=== PATIENT | female | born 1970 | race Two or more races ===

== ENCOUNTER 2018-06-28 17:34 | Emergency (ER) | payer MEDICAID ==
[~2018-06-28] VITALS: Ht 154.9 cm; Wt 67.1 kg
[2018-06-28 18:46] LABS: Basophils # (auto) 0 uL; Basophils % (auto) 0.2 % (0.0-2.0); Eosinophils # (auto) 0 uL; Eosinophils % (auto) 0.3 % (0.0-7.0); Hematocrit 50.3 % (36.0-46.0); Hemoglobin 16.6 g/dL (12.2-16.2); Lymphocytes # (auto) 1.2 uL; Lymphocytes % (auto) 10.8 % (10.0-50.0); Mean Corpuscular Hemoglobin 28.7 pg (28.0-32.0); Mean Corpuscular Volume 86.8 fL (80.0-100.0); Monocytes # (auto) 0.5 uL; Monocytes % (auto) 4.7 % (0.0-12.0); Neutrophils # (auto) 9.2 uL; Nucleated Red Blood Cells % 0.4 %; Platelet Count (auto) 203 10^3/uL (140-450); Red Blood Cells 5.79 10^6/uL (4.0-5.20); Red Cell Distribution Width 13.2 % (11.8-14.3); White Blood Cell 10.9 10^3/uL (4.4-10.8)
[2018-06-28 18:54] LABS: Albumin 3.9 g/dL (3.4-5.0); Anion Gap 6 (5-15); BUN/Creatinine Ratio 13.2; Blood Urea Nitrogen 12 mg/dL (7-18); Carbon Dioxide 28 mmol/L (21-32); Chloride 106 mmol/L (98-107); GFR African American 86 mL/min; GFR Non-African American 71 mL/min; Glucose 98 mg/dL (74-106); Potassium 3.8 mmol/L (3.5-5.1); Sodium 140 mmol/L (136-145)
[2018-06-28] MEDS ORDERED: SODIUM CHLORIDE 0.9% 500 ML IV ONE (18:56)
[2018-06-28] MEDS ORDERED: METOPROLOL TARTRATE 1MG/1ML-5ML VIAL IV ONE (19:00)
[2018-06-28] MEDS ORDERED: MORPHINE SULFATE 4 MG/ML SYR/VIAL IV ONE (19:00)
[2018-06-28] MEDS ORDERED: ONDANSETRON HCL 4 MG/2 ML VIAL IV ONE (19:00)
[2018-06-28 19:08] LABS: Alanine Aminotransferase 44 U/L (13-56); Alkaline Phosphatase 53 U/L (45-117); Aspartate Aminotransferase 19 U/L (15-37); Bilirubin, Total 0.4 mg/dL (0.2-1.0); Total Protein 7.8 g/dL (6.4-8.2)
[2018-06-28 20:13] VITALS: BP 109/58
== END 2018-06-28 20:28 | disposition home or self-care (01) ==
LOC: ER 17:36
DX: R00.2 Palpitations (principal); G43.909 Migraine, unspecified, not intractable, without status migrainosus; R11.2 Nausea with vomiting, unspecified
CPT/HCPCS: 36415; 71046; 80053; 83735; 84484; 85025; 93005; 94761; 96361; 96374; 96375; 99284; J2270; J2405

== ENCOUNTER 2020-12-03 21:55 | Inpatient (IN) | payer MEDICAID ==
[~2020-12-03] VITALS: Ht 154.9 cm; Wt 66.7 kg
[2020-12-03] MEDS ORDERED: SODIUM CHLORIDE 0.9% 1,000 ML IV ONE (22:15)
[2020-12-03] MEDS ORDERED: dilTIAZem 125mg/125ml BAG KIT 125 ML IV ONE (22:15)
[2020-12-03] MEDS ORDERED: dilTIAZem 25 MG/5 ML VIAL IV ONE (22:15)
[2020-12-03 22:44] LABS: Basophils # (auto) 0 10 ^3/uL (0-0.2); Basophils % (auto) 0.7 % (0.0-2.0); Eosinophils # (auto) 0 10 ^3/uL (0-0.8); Eosinophils % (auto) 0.7 % (0.0-7.0); Hematocrit 47.9 % (36.0-46.0); Lymphocytes % (auto) 28.1 % (10.0-50.0); Mean Corpuscular Hemoglobin 28.8 pg (28.0-32.0); Mean Corpuscular Hgb Conc. 33.5 g/dL (32.0-36.0); Monocytes # (auto) 0.5 10 ^3/uL (0-1.3); Monocytes % (auto) 7.1 % (0.0-12.0); Neutrophils # (auto) 4.6 10 ^3/uL (1.6-8.6); Neutrophils % (auto) 63.4 % (37.0-80.0); Nucleated Red Blood Cells % 0.1 %; Red Blood Cells 5.57 10^6/uL (4.0-5.20); Red Cell Distribution Width 13.1 % (11.8-14.3); White Blood Cell 7.2 10^3/uL (4.4-10.8)
[2020-12-03 23:03] LABS: Albumin 3.3 g/dL (3.4-5.0); Anion Gap 8 (5-15); Blood Urea Nitrogen 16 mg/dL (7-18); Calcium 8.1 mg/dL (8.5-10.1); Carbon Dioxide 25 mmol/L (21-32); Chloride 109 mmol/L (98-107); Glucose 105 mg/dL (74-106); Potassium 3.2 mmol/L (3.5-5.1); Sodium 142 mmol/L (136-145)
[2020-12-03 23:09] LABS: Alanine Aminotransferase 41 U/L (13-56); Alkaline Phosphatase 49 U/L (45-117); Aspartate Aminotransferase 20 U/L (15-37); BUN/Creatinine Ratio 18.6; Bilirubin, Total 0.4 mg/dL (0.2-1.0); GFR African American 91 mL/min; GFR Non-African American 75 mL/min; Total Protein 6.8 g/dL (6.4-8.2)
[2020-12-04] MEDS ORDERED: ONDANSETRON HCL 4 MG/2 ML VIAL IV ONE (01:45)
[2020-12-04] MEDS ORDERED: POTASSIUM CHL 20 Meq TABLET PO ONE (02:00)
[2020-12-04 02:02] LABS: Urine Bacteria FEW /hpf (None Seen); Urine Blood Negative /uL (Negative); Urine Specific Gravity 1.004 (1.001-1.035); Urine WBC 1 /hpf (0 - 5)
[2020-12-04 02:14] LABS: Alcohol, Urine < 3.0 mg/dL (0-10); Amphetamine Screen, Urine NEGATIVE (NEGATIVE); Barbiturate Scree,Urine NEGATIVE (NEGATIVE); Benzodiazephine Screen, Urine NEGATIVE (NEGATIVE); Cannabinoid Screen, Urine NEGATIVE (NEGATIVE); Cocaine Screen, Urine NEGATIVE (NEGATIVE); Opiate Scree,Urine NEGATIVE (NEGATIVE); Phencyclidine Screen, Urine NEGATIVE (NEGATIVE)
[2020-12-04] MEDS ORDERED: NITROGLYCERIN 0.4 MG SL TAB SL PRN (03:45)
[2020-12-04] MEDS ORDERED: MORPHINE SULFATE INJECTION 2 MG/ML SYRG IV PRN (03:45)
[2020-12-04] MEDS ORDERED: NOREPINEPHRINE 8 MG/250ML KIT 250 ML IV SCH (05:45)
[2020-12-04] MEDS ORDERED: NOREPINEPHRINE 8 MG/250ML KIT 250 ML IV ONE (05:48)
[2020-12-04] MEDS ORDERED: SODIUM CHLORIDE 0.9% 500 ML IV ONE (06:00)
[2020-12-04] MEDS: ONDANSETRON HCL 4 MG/2 ML VIAL IV PRN ×2 (06:42→12:39)
[2020-12-04] MEDS ORDERED: cefTRIAXone SOD 500 MG VL IV SCH (10:00)
[2020-12-04] MEDS ORDERED: POTASSIUM EFFERVESENT TAB 25 MEQ PO ONE (11:00)
[2020-12-04] MEDS ORDERED: SODIUM CHLORIDE 0.9% 2,000 ML IV ONE (11:00)
[2020-12-04] MEDS: ENOXAPARIN SOD 60 MG/0.6 ML SYRINGE SC SCH ×2 (11:27→22:07)
[2020-12-04 11:39] LABS: INR 1.03 (0.9-1.15)
[2020-12-04] MEDS ORDERED: SUMAtriptan SUCCINATE 25 MG TAB PO ONE (13:00)
[2020-12-04] MEDS: METOPROLOL TARTRATE 25 MG TAB PO SCH (22:00)
[2020-12-05 04:15] LABS: BUN/Creatinine Ratio 14.5; Calcium 8.1 mg/dL (8.5-10.1); Potassium 3.9 mmol/L (3.5-5.1)
[2020-12-05] MEDS: METOPROLOL TARTRATE 25 MG TAB PO SCH (09:38)
[2020-12-05] MEDS: ENOXAPARIN SOD 60 MG/0.6 ML SYRINGE SC SCH (09:38)
[2020-12-05] MEDS ORDERED: ACETAMINOPHEN 325 MG TAB PO PRN (11:00)
[2020-12-05] MEDS ORDERED: MORPHINE SULFATE INJECTION 2 MG/ML SYRG IV PRN (11:00)
[2020-12-05] MEDS ORDERED: HYDROcodone-ACET 5/325MG TAB PO PRN (11:00)
[2020-12-05] MEDS ORDERED: SUMA100T15 PO (11:32)
[2020-12-05] MEDS ORDERED: ASPI-498 PO (11:32)
[2020-12-05 12:00] VITALS: BP 116/68
[2020-12-05] MEDS ORDERED: MET25T PO (12:27)
[2020-12-05] MEDS ORDERED: APIX5TAB PO (12:27)
== END 2020-12-05 13:56 | disposition home health service (06) | DRG 201 ==
LOC: ER 21:55 → EDBD 21:55 → TELE 12-04 03:45
PROVIDERS: ADMIT Nurse Practitioner Family; ATTEND Nurse Practitioner Family
DX: I48.0 Paroxysmal atrial fibrillation (principal); E87.6 Hypokalemia; G43.909 Migraine, unspecified, not intractable, without status migrainosus; Z20.822 Contact with and (suspected) exposure to COVID-19
CPT/HCPCS: 36415; 71045; 80048; 80053; 80061; 80307; 81001; 83036; 83735; 83880; 84484; 85025; 85610; 87426; 93005; 93306; 96361; 96365; 96366; 96375; 96376; G0378; J2405

== ENCOUNTER 2022-06-11 14:41 | Inpatient (IN) | payer MEDICAID ==
[~2022-06-11] VITALS: Ht 154.9 cm; Wt 68.9 kg
[~2022-06-11 14:41] MED LIST: APIX5TAB PO; ASPI-498 PO; MET25T PO; SUMA100T15 PO
[2022-06-11] MEDS ORDERED: SODIUM CHLORIDE 0.9% 1,000 ML IV ONE (15:15)
[2022-06-11] MEDS ORDERED: ONDANSETRON HCL 4 MG/2 ML VIAL IV ONE (15:15)
[2022-06-11] MEDS ORDERED: AMIODARONE 450mg/250ml AE 250 ML IV SCH (15:15)
[2022-06-11] MEDS ORDERED: AMIODARONE HCL 150 MG in D5W 5% 100 ML IV ONE (15:15)
[2022-06-11 15:28] LABS: Basophils # (auto) 0.1 10 ^3/uL (0-0.2); Basophils % (auto) 0.6 % (0.0-2.0); Eosinophils # (auto) 0 10 ^3/uL (0-0.8); Eosinophils % (auto) 0.1 % (0.0-7.0); Hematocrit 44.9 % (36.0-46.0); Hemoglobin 14.8 g/dL (12.2-16.2); Lymphocytes # (auto) 1.2 10 ^3/uL (0.4-5.4); Lymphocytes % (auto) 11.5 % (10.0-50.0); Mean Corpuscular Hemoglobin 28.1 pg (28.0-32.0); Mean Corpuscular Hgb Conc. 33.1 g/dL (32.0-36.0); Mean Corpuscular Volume 85.1 fL (80.0-100.0); Monocytes # (auto) 0.4 10 ^3/uL (0-1.3); Monocytes % (auto) 3.8 % (0.0-12.0); Neutrophils # (auto) 8.9 10 ^3/uL (1.6-8.6); Nucleated Red Blood Cells % 0.1 %; Red Blood Cells 5.28 10^6/uL (4.0-5.20); Red Cell Distribution Width 13.1 % (11.8-14.3); White Blood Cell 10.6 10^3/uL (4.4-10.8)
[2022-06-11 15:54] LABS: Albumin 3.1 g/dL (3.4-5.0); BUN/Creatinine Ratio 18.3; Calcium 7.9 mg/dL (8.5-10.1); Potassium 3.8 mmol/L (3.5-5.1)
[2022-06-11 15:56] LABS: Bilirubin, Total 0.4 mg/dL (0.2-1.0); Total Protein 5.9 g/dL (6.4-8.2)
[2022-06-11] MEDS ORDERED: PROMETHAZINE HCL 25 MG/ML 1ML IV ONE (17:15)
[2022-06-11 17:38] LABS: Urine Bacteria FEW /hpf (None Seen); Urine Blood Negative /uL (Negative); Urine Specific Gravity 1.008 (1.001-1.035); Urine WBC 1 /hpf (0 - 5)
[2022-06-11] MEDS ORDERED: MORPHINE SULFATE INJ 2 MG/ml SYRG IV PRN (18:00)
[2022-06-11] MEDS ORDERED: ACETAMINOPHEN 325 MG TAB PO PRN (18:00)
[2022-06-11] MEDS ORDERED: NITROGLYCERIN 0.4 MG SL TAB SL PRN (18:00)
[2022-06-11] MEDS ORDERED: HYDROcodone-ACET 5/325MG TAB PO PRN (18:00)
[2022-06-11] MEDS ORDERED: DOCUSATE SOD 100 MG CAP PO PRN (18:00)
[2022-06-11] MEDS ORDERED: ONDANSETRON HCL 4 MG/2 ML VIAL IV PRN (18:00)
[2022-06-11] MEDS ORDERED: CARV3.1240 PO (18:10)
[2022-06-11] MEDS ORDERED: dilTIAZem 25 MG/5 ML VIAL IV PRN (19:15)
[2022-06-11] MEDS: PANTOPRAZOLE 40 MG/10 ML VIAL INJ IV SCH (19:37)
[2022-06-11] MEDS ORDERED: ENOXAPARIN SOD 100 MG/1 ML SYRINGE SC SCH (20:00)
[2022-06-11] MEDS ORDERED: HYALURONIDASE 150 UNIT/1 ML SUBCUT ONE ×2 (20:15→22:45)
[2022-06-11] MEDS ORDERED: APIXABAN 5 MG TAB PO SCH (22:00)
[2022-06-11] MEDS: CARVEDILOL 3.125 MG TAB PO SCH (22:23)
[2022-06-12] MEDS ORDERED: AMIODARONE HCL 200 MG TAB PO SCH (00:55)
[2022-06-12] MEDS ORDERED: HYALURONIDASE 150 UNIT/1 ML SUBCUT ONE (00:55)
[2022-06-12] MEDS ORDERED: NITROGLYCERIN 2% OINT 1GM PKG TD ONE (03:45)
[2022-06-12 06:27] LABS: Basophils # (auto) 0.1 10 ^3/uL (0-0.2); Eosinophils # (auto) 0 10 ^3/uL (0-0.8); Eosinophils % (auto) 0.6 % (0.0-7.0); Hematocrit 42.5 % (36.0-46.0); Hemoglobin 14.1 g/dL (12.2-16.2); Lymphocytes # (auto) 1.8 10 ^3/uL (0.4-5.4); Lymphocytes % (auto) 24.6 % (10.0-50.0); Mean Corpuscular Hemoglobin 28.6 pg (28.0-32.0); Mean Corpuscular Hgb Conc. 33.2 g/dL (32.0-36.0); Mean Corpuscular Volume 86.3 fL (80.0-100.0); Monocytes # (auto) 0.6 10 ^3/uL (0-1.3); Monocytes % (auto) 7.4 % (0.0-12.0); Neutrophils % (auto) 66.4 % (37.0-80.0); Nucleated Red Blood Cells % 0.1 %; Red Blood Cells 4.93 10^6/uL (4.0-5.20); Red Cell Distribution Width 13.4 % (11.8-14.3); White Blood Cell 7.5 10^3/uL (4.4-10.8)
[2022-06-12] MEDS ORDERED: AMIODARONE 450mg/250ml AE 250 ML IV SCH (06:45)
[2022-06-12 06:47] LABS: Albumin 2.7 g/dL (3.4-5.0); Calcium 7.6 mg/dL (8.5-10.1); Potassium 3.6 mmol/L (3.5-5.1)
[2022-06-12 06:52] LABS: BUN/Creatinine Ratio 18.2; Bilirubin, Total 0.4 mg/dL (0.2-1.0); Total Protein 5.6 g/dL (6.4-8.2)
[2022-06-12] MEDS ORDERED: DRONEDARONE HCL 400 MG TAB PO SCH (10:00)
[2022-06-12] MEDS ORDERED: APIXABAN 5 MG TAB PO SCH (10:00)
[2022-06-12] MEDS ORDERED: ENOXAPARIN SOD 40 MG/0.4 ML SYRINGE SC SCH (10:00)
[2022-06-12] MEDS: CARVEDILOL 3.125 MG TAB PO SCH (10:02)
[2022-06-12] MEDS: PANTOPRAZOLE 40 MG/10 ML VIAL INJ IV SCH (10:02)
[2022-06-12] MEDS ORDERED: SUMAtriptan SUCCINATE 25 MG TAB PO PRN (15:15)
[2022-06-12] MEDS ORDERED: DRON400T PO (16:09)
[2022-06-12 17:38] VITALS: BP 149/76
== END 2022-06-12 18:40 | disposition home or self-care (01) | DRG 201 ==
LOC: EDBD 14:41 → EDUNIT# 14:41 → ER 14:41 → TELE 18:09
PROVIDERS: ADMIT Nurse Practitioner Family; ATTEND Nurse Practitioner Family
DX: I48.0 Paroxysmal atrial fibrillation (principal); K76.0 Fatty (change of) liver, not elsewhere classified; E66.9 Obesity, unspecified; I48.20 Chronic atrial fibrillation, unspecified; E78.5 Hyperlipidemia, unspecified; Z20.822 Contact with and (suspected) exposure to COVID-19; G43.909 Migraine, unspecified, not intractable, without status migrainosus; I10 Essential (primary) hypertension; Z79.899 Other long term (current) drug therapy; Z68.28 Body mass index [BMI] 28.0-28.9, adult
CPT/HCPCS: 36415; 70450; 71045; 80053; 81001; 83735; 84443; 84484; 85025; 87426; 87804; 93005; 93306; 96365; 96366; 96375; C9113; G0378; J2405; J3470; J7060

== ENCOUNTER 2024-01-29 08:46 | Inpatient (IN) | payer BC, MEDICAID ==
[~2024-01-29] VITALS: Ht 154.9 cm; Wt 73.4 kg
[~2024-01-29 08:46] MED LIST changes: +CARV3.1240 PO; +DRON400T PO
[2024-01-29] MEDS: dilTIAZem 25 MG/5 ML VIAL IV ONE ×2 (09:19→09:23)
--- NOTE | 2024-01-29 09:21 | ED.PDOC ---
HPI Comments 53-year-old female presents with a chief complaint of palpitations, SOB, and chest pain x onset this morning. Patient states that her pain is localized to her left chest wall, describes as pressure, and mentions that she has had this pain before in the past. Patient arrived to the ER with a heart rate of 190 and EKG showed A-Fib RVR. Blood pressure at bedside evaluation is 118/100. No other symptoms or modifying factors present at this time. Chief Complaint: Palpitations Time Seen by MD: 09:04 Primary Care Provider: JOSHUA Loza Notes: Medications, Allergies Allergies: Coded Allergies: NO KNOWN ALLERGIES (Unverified , 01/22/13) Home Meds Active Scripts Dronedarone Hydrochloride (Multaq) 400 Mg Tab, 400 MG PO BID, #60 TAB Prov:DEYANIRA AZAR MD 06/12/22 Apixaban Base (ELIQUIS) 5 Mg Tab, 5 MG PO BID, #60 TAB Prov:MAX CARDONA MD 12/05/20 Metoprolol Tartrate (Lopressor) 25 Mg Tb, 12.5 MG PO BID, #15 TAB Prov:MAX CARDONA MD 12/05/20 Reported Medications Carvedilol (Carvedilol) 3.125 Mg Tab, 1 TAB PO BID 06/11/22 Aspirin (ASPIRIN 81) 81 Mg Tab, 1 TAB PO DAILYPRN 12/05/20 Sumatriptan Succinate (Sumatriptan Succinate) 100 Mg Tab, PO 12/05/20 Information Source: Patient Mode of Arrival: Wheelchair Severity: Moderate Timing: Minutes Duration: Since onset Prehospital treatment: None Location: Chest (L) Radiation: No Radiation Quality: Pressure Onset: At Rest Cardiac Risk Factors: HTN PE Risk Factors: None History of: Similar pain in past Past Medical History PAST MEDICAL HISTORY: AFIB, HTN Surgical History: Denies all surgeries LABORATORY ADMINISTRATIVE DIRECTOR History: No Pertinent LABORATORY ADMINISTRATIVE DIRECTOR History Family History Family History: Reviewed,noncontributory to illness Social History Smoker: Non-Smoker Alcohol: Denies ETOH Use Drugs: Denies Drug Use Lives In: Home Constitutional: denies: chills, diaphoresis, fatigue, fever, malaise, sweats, weakness, others EENTM: denies: blurred vision, double vision, ear bleeding, ear discharge, ear drainage, ear pain, ear ringing, eye pain, eye redness, hearing loss, mouth pain, mouth swelling, nasal discharge, nose bleeding, nose congestion, nose pain, photophobia, tearing, throat pain, throat swelling, voice changes, others Respiratory: reports: shortness of breath; denies: cough, hemoptysis, orthopnea, SOB at rest, SOB with excertion, stridor, wheezing, others Cardiovascular: reports: chest pain, palpitations; denies: dizzy spells, diaphoresis, Dyspnea on exertion, edema, irregular heart beat, left arm pain, lightheadedness, PND, syncope, others Gastrointestinal: denies: abdomen distended, abdominal pain, blood streaked bowels, constipated, diarrhea, dysphagia, difficulty swallowing, hematemesis, melena, nausea, poor appetite, poor fluid intake, rectal bleeding, rectal pain, vomiting, others Genitourinary: denies: abnormal vagina bleeding, burning, dyspareunia, dysuria, flank pain, frequency, hematuria, incontinence, pain, , vagina discharge, urgency, others Neurological: denies: dizziness, fainting, headache, left sided numbness, left sided weakness, numbness, paresthesia, pre-existing deficit, right sided numbness, right sided weakness, seizure, speech problems, tingling, tremors, weakness, others Musculoskeletal: denies: back pain, gout, joint pain, joint swelling, muscle pain, muscle stiffness, neck pain, others Integumetry: denies: bruises, change in color, change in hair/nails, dryness, laceration, lesions, lumps, rash, wounds, others Allergic/Immunocompromised: denies: Difficulty Healing, Frequent Infections, Hives, Itching, others Hematologic/Lymphatic: denies: anemia, blood clots, easy bleeding, easy bruising, swollen glands, others Endocrine: denies: excessive hunger, excessive sweating, excessive thirst, excessive urination, flushing, intolerance to cold, intolerance to heat, unexplained weight gain, unexplained weight loss, others Psychiatric: denies: anxiety, bipolar disorder, depression, hopeless, panic disorder, schizophrenia, sleepless, suicidal, others All Other Systems: Reviewed and Negative Physical Exam General Appearance: No Apparent Distress, Normal HEENT: Normal ENT Inspection, Pharynx Normal, TMs Normal Neck: Full Range of Motion, Non-Tender, Normal, Normal Inspection Respiratory: Chest Non-Tender, Lungs Clear, No Accessory Muscle Use, No Respiratory Distress, Normal Breath Sounds Cardiovascular: No Edema, No JVD, No Murmur, No Gallop, Normal Peripheral Pulses, Regular Rate/Rhythm Breast Exam: Deferred Gastrointestinal: No Organomegaly, Non Tender, No Pulsatile Mass, Normal Bowel Sounds, Soft Genitalia: Deferred Pelvic: Deferred Rectal: Deferred Extremities: No calf tenderness, Normal capillary refill, Normal inspection, Normal range of motion, Non-tender, No pedal edema Musculoskeletal : Apperance: Normal Neurologic: Alert, sectionizer II-XII nml as Tested, No Motor Deficits, Normal Affect, Normal Mood, No Sensory Deficits Cerebellar Function: Normal Reflexes: Normal Skin: Dry, Normal Color, Warm Lymphatic: No Adenopathy EKG EKG : Pulse Rate (adult): 173 [place]: RAD Cardiac Rhythm: Afib ST: Inf, Lat, Ischemia Was a procedure done? Was a procedure done?: No CP Differential Dx Differential Diagnosis: A-fib, A-Flutter, Angina, Anxiety / Panic Attack, Electrolyte Disorder, Heart Failure, Hyperthyroidism, Hyperventilation, Pulmonary Embolus, Renal Failure Differential Diagnosis: CHF Differential Diagnosis: Angina, Chest Wall Pain, Costochondritis, Esophageal reflux/spasm, Myocardial Infarction, Pneumonia, Pulmonary Embolus X-Ray, Labs, Meds, VS Vital Signs Date Time Temp Pulse Resp B/P (MAP) Pulse Ox O2 Delivery O2 Flow Rate FiO2 01/29/24 12:48 120 01/29/24 12:00 137 01/29/24 11:49 134 01/29/24 11:48 160 101/73 01/29/24 11:09 139 101/76 (84) 01/29/24 10:33 173 01/29/24 09:53 96 01/29/24 09:30 98 Nasal Cannula* 2 28 01/29/24 09:25 98.1 85 17 97/38 (57) 95 98.1 01/29/24 09:14 82 01/29/24 08:54 98.0 173 19 118/100 (106) 97 01/29/24 08:48 173 Lab Test 01/29/24 13:20 01/29/24 11:30 01/29/24 10:48 01/29/24 10:26 Range/Units Troponin I High Sensitivity Pending 4 3 L </=34 ng/L Urine Color Light-yellow Yellow Urine Clarity Clear Clear Urine pH 5.0 5.0-9.0 Urine Specific [place] 1.006 1.001-1.035 Urine Protein Negative Negative Urine Ketones Negative Negative Urine Blood Negative Negative /uL Urine Nitrite Negative Negative Urine Bilirubin Negative Negative Urine Urobilinogen Normal Negative mg/dL Urine Leukocyte Esterase Negative Negative /uL Urine RBC None seen 0 - 4 /hpf Urine WBC <1 0 - 5 /hpf Urine Squamous Epithelial Cells Few <5 /hpf Urine Bacteria Many H None Seen /hpf Urine Mucus Few None Seen Urine Glucose Normal Normal mg/dL White Blood Count 8.1 4.4-10.8 10^3/uL Red Blood Count 5.00 4.0-5.20 10^6/uL Hemoglobin 14.5 12.2-16.2 g/dL Hematocrit 44.5 36.0-46.0 % Mean Corpuscular Volume 88.9 80.0-100.0 fL Mean Corpuscular Hemoglobin 28.9 28.0-32.0 pg Mean Corpuscular Hemoglobin Concent 32.5 32.0-36.0 g/dL Red Cell Distribution Width 13.4 11.8-14.3 % Platelet Count 167 140-450 10^3/uL Mean Platelet Volume 10.9 H 6.9-10.8 fL Neutrophils (%) (Auto) 78.3 37.0-80.0 % Lymphocytes (%) (Auto) 14.0 10.0-50.0 % Monocytes (%) (Auto) 6.4 0.0-12.0 % Eosinophils (%) (Auto) 0.9 0.0-7.0 % Basophils (%) (Auto) 0.4 0.0-2.0 % Neutrophils # (Auto) 6.3 1.6-8.6 10 ^3/uL Lymphocytes # (Auto) 1.1 0.4-5.4 10 ^3/uL Monocytes # (Auto) 0.5 0-1.3 10 ^3/uL Eosinophils # (Auto) 0.1 0-0.8 10 ^3/uL Basophils # (Auto) 0 0-0.2 10 ^3/uL Nucleated Red Blood Cells 0.0 % Sodium Level 143 136-145 mmol/L Potassium Level 3.9 3.5-5.1 mmol/L Chloride Level 113 H 98-107 mmol/L Carbon Dioxide Level 24 20-31 mmol/L Anion Gap 6 5-15 Blood Urea Nitrogen 10 9-23 mg/dL Creatinine 0.83 0.550-1.02 mg/dL Glomerular Filtration Rate Calc 85 >90 mL/min BUN/Creatinine Ratio 12.0 10.0-20.0 Serum Glucose 78 74-106 mg/dL Calcium Level 8.9 8.7-10.4 mg/dL Magnesium Level 2.2 1.6-2.6 mg/dL Total Bilirubin 0.4 0.2-1.0 mg/dL Aspartate Amino Transferase (AST) 20 13-40 U/L Alanine Aminotransferase (ALT) 35 7-40 U/L Alkaline Phosphatase 50 46-116 U/L B-Type Natriuretic Peptide 18.95 0-100 pg/mL Total Protein 6.3 5.7-8.2 g/dL Albumin 3.7 3.2-4.8 g/dL Thyroid Stimulating Hormone (TSH) 1.69 0.55-4.78 uIU/mL Test 01/29/24 10:20 Range/Units D-Dimer, Quantitative 0.20 0.0-0.49 mg/L FEU Current Medications Medications (Trade) Dose Ordered Sig/Lena Route Start Time Stop Time Status Last Admin Diltiazem HCl (Cardizem Injection) 25 mg ONCE ONCE IV 01/29/24 09:15 01/29/24 09:16 DC 01/29/24 09:23 Metoprolol Tartrate (Lopressor) 2.5 mg ONCE ONCE IV 01/29/24 11:30 01/29/24 11:33 DC 01/29/24 11:48 Sodium Chloride 1,000 ml @ 150 mls/hr Q6H40M ONCE IV 01/29/24 12:30 01/29/24 19:09 01/29/24 12:54 X-Ray, Labs, Meds, VS Comment Course in the emergency department eventful patient came in complaining of palpitation shortness of breath and chest pressure Blood pressure is 118/100 Chest x-ray is normal EKG shows uncontrolled paroxysmal atrial fibrillation at 100 and 73 CBC normal CMP negative BNP 18.9 Troponin three and four Magnesium 2.2 Urine shows many bacteria D-dimer 0.20 TSH 1.69 Patient will be admitted for further care Patient is still tachycardic if not better patient will be put on amiodarone Time of 1ST Reevaluation: 09:34 Reevaluation 1ST: Unchanged Patient Education/Counseling: Diagnosis, Treatment, Prognosis Family Education/Counseling: No Family Present Departure 1 Departure Time of Disposition: 12:24 Impression: Primary Impression: Paroxysmal atrial fibrillation Additional Impression: Chest pain Qualified Codes: I20.0 - Unstable angina Disposition: ADMITTED INPATIENT Admit to: Tele Condition: Serious Critical Care Note Critical Care Time?: No Stability Stability form required: Yes Unstable for transfer: Telemetry monitoring (Telemetry monitoring required), Requires medication (Requires Med for stabilization) Comments Dr. Almeida consulted Heart Score Heart Score: Heart Score Response (Comments) Value History Moderate Suspicious 1 EKG Repolarization Disturb 1 Age 45-64 1 Risk Factors 1 or 2 risk factors 1 Troponin Normal limit 0 Total 4 I personally scribed for KRUPA RODRIGUEZ MD ([email or web address]) on 01/29/24 at 09:21. Electronically submitted by Rojelio Yates ([email or web address]). KRUPA RODRIGUEZ MD Jan 29, 2024 09:21
[2024-01-29 09:30] VITALS: O2SAT 98
--- NOTE | 2024-01-29 09:38 | DVH ---
CHEST RADIOGRAPH Indication:PALPITATIONS Technique: Single frontal view of the chest was obtained Comparison: XY CHEST XRAY 1 VIEW on DOS: 06/11/22, CHEST PORTABLE on DOS: 12/04/20, CXRP on DOS: 12/03/20 FINDINGS: Lines and Tubes: None Lungs: No focal consolidation. Pleura: No effusion. No pneumothorax. Cardiomediastinal contours: Unremarkable Bones: No acute osseous abnormality. IMPRESSION: No acute cardiopulmonary disease.
[2024-01-29 10:45] LABS: Basophils # (auto) 0 10 ^3/uL (0-0.2); Basophils % (auto) 0.4 % (0.0-2.0); Eosinophils # (auto) 0.1 10 ^3/uL (0-0.8); Eosinophils % (auto) 0.9 % (0.0-7.0); Hematocrit 44.5 % (36.0-46.0); Hemoglobin 14.5 g/dL (12.2-16.2); Lymphocytes # (auto) 1.1 10 ^3/uL (0.4-5.4); Mean Corpuscular Hemoglobin 28.9 pg (28.0-32.0); Mean Corpuscular Hgb Conc. 32.5 g/dL (32.0-36.0); Mean Corpuscular Volume 88.9 fL (80.0-100.0); Monocytes # (auto) 0.5 10 ^3/uL (0-1.3); Monocytes % (auto) 6.4 % (0.0-12.0); Neutrophils # (auto) 6.3 10 ^3/uL (1.6-8.6); Neutrophils % (auto) 78.3 % (37.0-80.0); Platelet Count (auto) 167 10^3/uL (140-450); Red Cell Distribution Width 13.4 % (11.8-14.3); White Blood Cell 8.1 10^3/uL (4.4-10.8)
[2024-01-29 11:02] LABS: Alanine Aminotransferase 35 U/L (7-40); Albumin 3.7 g/dL (3.2-4.8); Alkaline Phosphatase 50 U/L (46-116); Anion Gap 6 (5-15); Aspartate Aminotransferase 20 U/L (13-40); Bilirubin, Total 0.4 mg/dL (0.2-1.0); Blood Urea Nitrogen 10 mg/dL (9-23); Calcium 8.9 mg/dL (8.7-10.4); Carbon Dioxide 24 mmol/L (20-31); Chloride 113 mmol/L (98-107); Glucose 78 mg/dL (74-106); Magnesium 2.2 mg/dL (1.6-2.6); Potassium 3.9 mmol/L (3.5-5.1); Sodium 143 mmol/L (136-145); Total Protein 6.3 g/dL (5.7-8.2)
[2024-01-29 11:11] LABS: Urine Bacteria MANY /hpf (None Seen); Urine Blood Negative /uL (Negative); Urine Mucus FEW (None Seen); Urine Protein, UAD Negative (Negative); Urine Specific Gravity 1.006 (1.001-1.035); Urine Urobilinogen Normal (Negative); Urine WBC <1 /hpf (0 - 5)
[2024-01-29 11:13] LABS: Urine Clarity Clear (Clear); Urine Color Light-Yellow (Yellow)
[2024-01-29] MEDS: METOPROLOL TARTRATE 1MG/1ML-5ML VIAL IV ONE (11:48)
[2024-01-29] MEDS: SODIUM CHLORIDE 0.9% 1,000 ML IV ONE (12:54)
[2024-01-29] MEDS: AMIODARONE BOLUS KIT 100 ML IV ONE (14:00)
--- NOTE | 2024-01-29 14:39 | DVHINCON2 ---
Date of service: Jan 29, 2024 History of Present Illness 53 yo F with hx of pAF, recent admit to [facility] for chest pain, admitted for afib rvr. pt has seen dr peters before and takes doac Past Medical History reviewed Allergies: Coded Allergies: NO KNOWN ALLERGIES (Unverified , 01/22/13) Home Meds Active Scripts Dronedarone Hydrochloride (Multaq) 400 Mg Tab, 400 MG PO BID, #60 TAB Prov:DEYANIRA AZAR MD 06/12/22 Apixaban Base (ELIQUIS) 5 Mg Tab, 5 MG PO BID, #60 TAB Prov:MAX CARDONA MD 12/05/20 Metoprolol Tartrate (Lopressor) 25 Mg Tb, 12.5 MG PO BID, #15 TAB Prov:MAX CARDONA MD 12/05/20 Reported Medications Carvedilol (Carvedilol) 3.125 Mg Tab, 1 TAB PO BID 06/11/22 Aspirin (ASPIRIN 81) 81 Mg Tab, 1 TAB PO DAILYPRN 12/05/20 Sumatriptan Succinate (Sumatriptan Succinate) 100 Mg Tab, PO 12/05/20 Current Medications Current Medications Medications (Trade) Dose Ordered Sig/Lena Route PRN Reason Start Time Stop Time Status Last Admin Amiodarone HCl 250 ml @ 33.333 mls/ hr Q7H30M IV 01/29/24 14:00 01/29/24 19:59 Amiodarone HCl 250 ml @ 16.667 mls/ hr Q15H IV 01/29/24 20:00 Review of Systems 10 pt ros otherwise negative Vital Signs Vital Signs Date Time Temp Pulse Resp B/P (MAP) Pulse Ox O2 Delivery O2 Flow Rate FiO2 01/29/24 12:48 120 01/29/24 11:48 101/73 01/29/24 09:30 98 Nasal Cannula* 2 28 01/29/24 09:25 98.1 17 98.1 Physical Exam nad s1 s2 irregular ctab soft nt/nd no edema Labs/Diagnostic Data Labs Test 01/29/24 13:20 01/29/24 10:48 01/29/24 10:26 01/29/24 10:20 Range/Units Troponin I High Sensitivity 4 </=34 ng/L Urine Color Light-yellow Yellow Urine Clarity Clear Clear Urine pH 5.0 5.0-9.0 Urine Specific [place] 1.006 1.001-1.035 Urine Protein Negative Negative Urine Ketones Negative Negative Urine Blood Negative Negative /uL Urine Nitrite Negative Negative Urine Bilirubin Negative Negative Urine Urobilinogen Normal Negative mg/dL Urine Leukocyte Esterase Negative Negative /uL Urine RBC None seen 0 - 4 /hpf Urine WBC <1 0 - 5 /hpf Urine Squamous Epithelial Cells Few <5 /hpf Urine Bacteria Many H None Seen /hpf Urine Mucus Few None Seen Urine Glucose Normal Normal mg/dL White Blood Count 8.1 4.4-10.8 10^3/uL Red Blood Count 5.00 4.0-5.20 10^6/uL Hemoglobin 14.5 12.2-16.2 g/dL Hematocrit 44.5 36.0-46.0 % Mean Corpuscular Volume 88.9 80.0-100.0 fL Mean Corpuscular Hemoglobin 28.9 28.0-32.0 pg Mean Corpuscular Hemoglobin Concent 32.5 32.0-36.0 g/dL Red Cell Distribution Width 13.4 11.8-14.3 % Platelet Count 167 140-450 10^3/uL Mean Platelet Volume 10.9 H 6.9-10.8 fL Neutrophils (%) (Auto) 78.3 37.0-80.0 % Lymphocytes (%) (Auto) 14.0 10.0-50.0 % Monocytes (%) (Auto) 6.4 0.0-12.0 % Eosinophils (%) (Auto) 0.9 0.0-7.0 % Basophils (%) (Auto) 0.4 0.0-2.0 % Neutrophils # (Auto) 6.3 1.6-8.6 10 ^3/uL Lymphocytes # (Auto) 1.1 0.4-5.4 10 ^3/uL Monocytes # (Auto) 0.5 0-1.3 10 ^3/uL Eosinophils # (Auto) 0.1 0-0.8 10 ^3/uL Basophils # (Auto) 0 0-0.2 10 ^3/uL Nucleated Red Blood Cells 0.0 % Sodium Level 143 136-145 mmol/L Potassium Level 3.9 3.5-5.1 mmol/L Chloride Level 113 H 98-107 mmol/L Carbon Dioxide Level 24 20-31 mmol/L Anion Gap 6 5-15 Blood Urea Nitrogen 10 9-23 mg/dL Creatinine 0.83 0.550-1.02 mg/dL Glomerular Filtration Rate Calc 85 >90 mL/min BUN/Creatinine Ratio 12.0 10.0-20.0 Serum Glucose 78 74-106 mg/dL Calcium Level 8.9 8.7-10.4 mg/dL Magnesium Level 2.2 1.6-2.6 mg/dL Total Bilirubin 0.4 0.2-1.0 mg/dL Aspartate Amino Transferase (AST) 20 13-40 U/L Alanine Aminotransferase (ALT) 35 7-40 U/L Alkaline Phosphatase 50 46-116 U/L B-Type Natriuretic Peptide 18.95 0-100 pg/mL Total Protein 6.3 5.7-8.2 g/dL Albumin 3.7 3.2-4.8 g/dL Thyroid Stimulating Hormone (TSH) 1.69 0.55-4.78 uIU/mL D-Dimer, Quantitative 0.20 0.0-0.49 mg/L FEU Assessment afib rvr chest pain htn obesity Plan/Recommendation amio gtt iv digoxin cont lovenox/ or doac check echo had echo done [facility] 1 week ago Plan discussed with: Patient BENJAMÍN MELISSA MD Jan 29, 2024 14:39
[2024-01-29] MEDS: AMIODARONE 450mg/250ml AE 250 ML IV SCH ×2 (14:53→20:00)
[2024-01-29] MEDS: ENOXAPARIN SOD 80 MG/0.8ML SYRINGE SC ONE (15:14)
[2024-01-29] MEDS: DIGOXIN (250MCG/ML) 2 ML AMPULE IV ONE (15:14)
[2024-01-29] MEDS: METOPROLOL SUCCINATE XL 50 MG TAB PO SCH (15:14)
[2024-01-29] MEDS: SUMAtriptan SUCCINATE 25 MG TAB PO ONE (16:36)
[2024-01-29] MEDS ORDERED: ACETAMINOPHEN 325 MG TAB PO PRN (16:45)
[2024-01-29] MEDS ORDERED: ONDANSETRON HCL 4 MG/2 ML VIAL IV PRN (16:45)
[2024-01-29] MEDS ORDERED: DOCUSATE SOD 100 MG CAP PO PRN (16:45)
--- NOTE | 2024-01-29 17:04 | DVHHP2 ---
History of Present Illness Reason for Visit: Paroxysmal atrial fibrillation History of Present Illness The patient is a 53-year-old female with past medical history of atrial fibrillation and hypertension who presented to [facility] ED with complaint of palpitations. Patient reports symptoms progressively get worse with localized left chest pain, nausea, shortness of breath, getting worse that prompted this visit. Patient was seen and evaluated in the ED with a heart rate of 190, EKG showed AFib with RVR, blood pressure 101/76, temperature 98.1 F, O2 saturation 98% on oxygen, WBC 8.1, platelets 167, sodium 143, potassium 3.9, BUN 10, creatinine 0.83, glucose 78, troponin four, TSH 1.69. Chest x-ray show no acute cardiopulmonary disease. Patient was started on amiodarone drip, please see medication orders section in the computer. On my assessment, patient denied chest pain, no headache, no dizziness, no diaphoresis, currently on oxygen, no v omiting, no fever, no chills. Patient was admitted for further evaluation and medical management. Past Medical History AFIB, HTN Past Surgical History Denies all surgeries Family History Reviewed, noncontributory to the management of this case. Past Social History The patient lives at home, denies smoking, alcohol or illicit drugs abuse. Review of Systems Constitutional: Yes: Weakness; No: Fever, Chills, Sweats, Malaise, Other Eyes: No: Pain, Vision change, Conjunctivae inflammation, Eyelid inflammation, Other, Redness ENT: No: Ear pain, Ear discharge, Nose pain, Nose discharge, Nose congestion, Mouth pain, Mouth swelling, Throat pain, Throat swelling, Other Respiratory: Shortness of breath; No: Cough, Dry, SOB with excertion, Wheezing, Hemoptysis, Pleuritic Pain, Sputum, Wheezing, Other Cardiovascular: Chest Pain, Palpitations; No: Orthopnea, Paroxysmal Noc. Dyspnea, Edema, Lt Headedness, Other Gastrointestinal: Nausea; No: Vomiting, Abdominal Pain, Diarrhea, Constipation, Melena, Hematochezia, Other Genitourinary: No Dysuria, No Frequency, No Incontinence, No Hematuria, No Retention, No Other Musculoskeletal: No: other, neck pain, shoulder pain, arm pain, back pain, hand pain, leg pain, foot pain Skin: No: Rash, Lesions, Jaundice, Bruising, Other Neurological: No: Weakness, Numbness, Incoordination, Change in speech, Confusion, Seizures, Other Allergies: Coded Allergies: NO KNOWN ALLERGIES (Unverified , 01/22/13) Medications Current Medications Medications Dose Ordered Sig/Lena Route Start Time Stop Time Status Last Admin Dose Admin Amiodarone HCl 250 ml @ 33.333 mls/ hr Q7H30M IV 01/29/24 14:00 01/29/24 19:59 01/29/24 14:53 33.333 MLS/HR Amiodarone HCl 250 ml @ 16.667 mls/ hr Q15H IV 01/29/24 20:00 Carvedilol 3.125 mg Q12HR PO 01/29/24 22:00 Apixaban 5 mg BID PO 01/29/24 22:00 Sodium Chloride 10 ml Q8HR IV 01/29/24 22:00 Acetaminophen/ Hydrocodone Bitart 1 tab Q4HP PRN PO 01/29/24 16:45 Ondansetron HCl 4 mg Q4HP PRN IV 01/29/24 16:45 Docusate Sodium 100 mg BIDPRN PRN PO 01/29/24 16:45 Acetaminophen 650 mg Q6HP PRN PO 01/29/24 16:45 Exam Vital Signs Vital Signs Date Time Temp Pulse Resp B/P (MAP) Pulse Ox O2 Delivery O2 Flow Rate FiO2 01/29/24 16:00 127 01/29/24 15:14 86/59 01/29/24 15:00 12 98 01/29/24 09:30 Nasal Cannula* 2 28 01/29/24 09:25 98.1 98.1 General Appearance: Alert, Oriented X3, Cooperative, No acute distress HEENT: Atraumatic, PERRLA, EOMI, Mucous membr. moist/pink Respiratory: Clear to auscultation, Normal air movement Cardiovascular: Regular rate, Normal S1, Normal S2, No murmurs Abdominal: Normal bowel sounds, Soft, No tenderness, No hepatospenomegaly, No masses Extremities: No clubbing, No cyanosis, No edema, Normal pulses, No tenderness/swelling Skin: No rashes, No breakdown, No significant lesion Neuro: Normal speech, Normal tone, Sensation intact, Cranial nerves 3-12 NL, Reflexes 2+, Other (Generalized weakness) Psych/Mental Status: Mental status NL, Mood NL Labs/Xrays Labs Test 01/29/24 13:20 01/29/24 10:48 01/29/24 10:26 01/29/24 10:20 Range/Units Troponin I High Sensitivity 4 </=34 ng/L Urine Color Light-yellow Yellow Urine Clarity Clear Clear Urine pH 5.0 5.0-9.0 Urine Specific [place] 1.006 1.001-1.035 Urine Protein Negative Negative Urine Ketones Negative Negative Urine Blood Negative Negative /uL Urine Nitrite Negative Negative Urine Bilirubin Negative Negative Urine Urobilinogen Normal Negative mg/dL Urine Leukocyte Esterase Negative Negative /uL Urine RBC None seen 0 - 4 /hpf Urine WBC <1 0 - 5 /hpf Urine Squamous Epithelial Cells Few <5 /hpf Urine Bacteria Many H None Seen /hpf Urine Mucus Few None Seen Urine Glucose Normal Normal mg/dL White Blood Count 8.1 4.4-10.8 10^3/uL Red Blood Count 5.00 4.0-5.20 10^6/uL Hemoglobin 14.5 12.2-16.2 g/dL Hematocrit 44.5 36.0-46.0 % Mean Corpuscular Volume 88.9 80.0-100.0 fL Mean Corpuscular Hemoglobin 28.9 28.0-32.0 pg Mean Corpuscular Hemoglobin Concent 32.5 32.0-36.0 g/dL Red Cell Distribution Width 13.4 11.8-14.3 % Platelet Count 167 140-450 10^3/uL Mean Platelet Volume 10.9 H 6.9-10.8 fL Neutrophils (%) (Auto) 78.3 37.0-80.0 % Lymphocytes (%) (Auto) 14.0 10.0-50.0 % Monocytes (%) (Auto) 6.4 0.0-12.0 % Eosinophils (%) (Auto) 0.9 0.0-7.0 % Basophils (%) (Auto) 0.4 0.0-2.0 % Neutrophils # (Auto) 6.3 1.6-8.6 10 ^3/uL Lymphocytes # (Auto) 1.1 0.4-5.4 10 ^3/uL Monocytes # (Auto) 0.5 0-1.3 10 ^3/uL Eosinophils # (Auto) 0.1 0-0.8 10 ^3/uL Basophils # (Auto) 0 0-0.2 10 ^3/uL Nucleated Red Blood Cells 0.0 % Sodium Level 143 136-145 mmol/L Potassium Level 3.9 3.5-5.1 mmol/L Chloride Level 113 H 98-107 mmol/L Carbon Dioxide Level 24 20-31 mmol/L Anion Gap 6 5-15 Blood Urea Nitrogen 10 9-23 mg/dL Creatinine 0.83 0.550-1.02 mg/dL Glomerular Filtration Rate Calc 85 >90 mL/min BUN/Creatinine Ratio 12.0 10.0-20.0 Serum Glucose 78 74-106 mg/dL Calcium Level 8.9 8.7-10.4 mg/dL Magnesium Level 2.2 1.6-2.6 mg/dL Total Bilirubin 0.4 0.2-1.0 mg/dL Aspartate Amino Transferase (AST) 20 13-40 U/L Alanine Aminotransferase (ALT) 35 7-40 U/L Alkaline Phosphatase 50 46-116 U/L B-Type Natriuretic Peptide 18.95 0-100 pg/mL Total Protein 6.3 5.7-8.2 g/dL Albumin 3.7 3.2-4.8 g/dL Thyroid Stimulating Hormone (TSH) 1.69 0.55-4.78 uIU/mL D-Dimer, Quantitative 0.20 0.0-0.49 mg/L FEU PATIENT: THOM PEDRAZA ACCT: [id number] UNIT: [id number] : 1970 LOC: ER ROOM / BED: / AGE / SEX: 53 / F ADM STATUS: REG ER SERVICE [id number] ORDERING PHYSICIAN: KRUPA RODRIGUEZ MD PROCEDURE(s): CXRP - CHEST PORTABLE REASON: PALPITATIONS ORDER NUMBER(s): [id number], ACCESSION NUMBER(s): [id number] CHEST RADIOGRAPH Indication:PALPITATIONS Technique: Single frontal view of the chest was obtained Comparison: XY CHEST XRAY 1 VIEW on DOS: 06/11/22, CHEST PORTABLE on DOS: 12/04/20, CXRP on DOS: 12/03/20 FINDINGS: Lines and Tubes: None Lungs: No focal consolidation. Pleura: No effusion. No pneumothorax. Cardiomediastinal contours: Unremarkable Bones: No acute osseous abnormality. IMPRESSION: No acute cardiopulmonary disease. Assessment/Plan Assessment/Plan Paroxysmal atrial fibrillation Chest pain Unstable angina Generalized weakness Plan 1. Admit to telemetry unit 2. Breathing treatment 3. Pain control management 4. Management of fluids and electrolytes 5. Consultation for Cardiology 6. Diagnostic tests chest x-ray 7. DVT prophylaxis-on Eliquis 8. Repeat labs CBC, CMP in a.m. 9. Continue with current medical management 10. Treatment plan discussed with patient and RN. Patient verbalized understanding. Plan discussed with: Patient, Other (RN) My Orders Orders - RASHAD ALFONSO DNP Procedure Category Date Status Time Carvedilol Tablet PHA 01/29/24 In Process (Coreg Tablet) 22:00 * Cardiology Consult CONS 01/29/24 Transmitted 16:42 Apixaban (Eliquis) PHA 01/29/24 In Process 22:00 Allergies ELIZ 01/29/24 In Process 16:42 Code Status CODE 01/29/24 Transmitted 16:42 Sodium Chloride Lock PHA 01/29/24 In Process (Saline Lock Ns) 22:00 Oxygen Per Hour RT 01/29/24 Transmitted 16:42 Hydrocodone-Acet PHA 01/29/24 In Process 5/325mg Tab ([place] 16:45 Ondansetron Hcl PHA 01/29/24 In Process (Zofran) 16:45 Docusate Sodium PHA 01/29/24 In Process Capsule (Colace 16:45 Fall Risk Precautions ELIZ 01/29/[address] 16:42 Complete Blood Count LAB 01/30/24 Verified 04:00 Comprehensive LAB 01/30/24 Verified Metabolic Panel 04:00 Cardiac DIET 01/29/24 Transmitted Diet-2gna,Lofat,Lochol Dinner Condition: Serious ELIZ 01/29/24 In Process 16:42 Acetaminophen Tablet PHA 01/29/24 In Process (Tylenol Tablet) 16:45 Maintain Bed Rest ELIZ 01/29/24 In Process 16:42 Sequential ELIZ 01/29/24 In Process Compression Device Problem List: (1) Paroxysmal atrial fibrillation (2) Chest pain (3) Unstable angina (4) Generalized weakness Date of Service: Jan 29, 2024 Billing Provider: RASHAD ALFONSO DNP Common Visit Codes: [id number] INP/OBS CARE (HIGH) RASHAD ALFONSO DNP Jan 29, 2024 17:04
[2024-01-29] MEDS ORDERED: NITROGLYCERIN 0.4 MG SL TAB SL PRN (17:15)
[2024-01-29] MEDS ORDERED: MORPHINE SULFATE INJ 2 MG/ml SYRG IV PRN (17:15)
[2024-01-29 18:35] VITALS: PULSE 110; RESP 18; O2SAT 98
--- NOTE | 2024-01-29 19:14 | ECG ---
[facility] Test Date: 2024-01-29 Test Time: 09:53:22 Pat Name: THOM PEDRAZA Department: ER Room: 0278T Gender: F Rn Community Health: PHUC : 1970 Requested By: KRUPA RODRIGUEZ Order Number: [id number] Reading MD: Measurements Intervals [place] Rate: 96 P: 0 SD: 0 QRS: 55 QRSD: 90 T: 38 QT: 359 QTc: 454 Interpretive Statements Atrial fibrillation Please click the below link to view image of tracing.
--- NOTE | 2024-01-29 19:14 | ECG ---
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
--- NOTE | 2024-01-29 19:14 | ECG ---
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
[2024-01-29 20:00] VITALS: PULSE 132; PULSE 94; RESP 16; O2SAT 97
[2024-01-29 21:00] VITALS: BP 126/54; PULSE 71; RESP 16; TEMP 98.2; O2SAT 97
[2024-01-29] MEDS: APIXABAN 5 MG TAB PO SCH (21:26)
[2024-01-29] MEDS: SODIUM CHLOR 0.9% PF (SALINE LOCK) 10ML VIAL/SYR IV SCH (21:26)
[2024-01-29] MEDS: CARVEDILOL 3.125 MG TAB PO SCH (21:27)
[2024-01-30] VITALS (7 sets, daily range): BP systolic 89–113; BP diastolic 46–76; PULSE 76–135; RESP 16–17; TEMP 97.7–98.4; O2SAT 94–99
[2024-01-30 06:24] LABS: Basophils # (auto) 0 10 ^3/uL (0-0.2); Basophils % (auto) 0.5 % (0.0-2.0); Eosinophils # (auto) 0.1 10 ^3/uL (0-0.8); Eosinophils % (auto) 1.9 % (0.0-7.0); Hematocrit 44.4 % (36.0-46.0); Hemoglobin 14.5 g/dL (12.2-16.2); Mean Corpuscular Hemoglobin 28.5 pg (28.0-32.0); Mean Corpuscular Hgb Conc. 32.7 g/dL (32.0-36.0); Mean Corpuscular Volume 87.3 fL (80.0-100.0); Monocytes # (auto) 0.5 10 ^3/uL (0-1.3); Monocytes % (auto) 7.1 % (0.0-12.0); Neutrophils # (auto) 4.4 10 ^3/uL (1.6-8.6); Neutrophils % (auto) 62.5 % (37.0-80.0); Nucleated Red Blood Cells % 0.1 %; Platelet Count (auto) 175 10^3/uL (140-450); Red Blood Cells 5.08 10^6/uL (4.0-5.20); Red Cell Distribution Width 13.3 % (11.8-14.3)
[2024-01-30 06:43] LABS: Alanine Aminotransferase 29 U/L (7-40); Alkaline Phosphatase 49 U/L (46-116); Anion Gap 7 (5-15); BUN/Creatinine Ratio 10.3 (10.0-20.0); Blood Urea Nitrogen 8 mg/dL (9-23); Carbon Dioxide 23 mmol/L (20-31); Chloride 112 mmol/L (98-107); Glucose 95 mg/dL (74-106); Potassium 3.8 mmol/L (3.5-5.1); Sodium 142 mmol/L (136-145)
[2024-01-30 06:44] LABS: Albumin 3.6 g/dL (3.2-4.8); Aspartate Aminotransferase 16 U/L (13-40); Bilirubin, Total 0.5 mg/dL (0.2-1.0)
[2024-01-30] MEDS: DIGOXIN 0.125 MG TAB PO SCH (09:55)
--- NOTE | 2024-01-30 12:31 | ECG ---
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
--- NOTE | 2024-01-30 12:52 | DVHPN2 ---
Progress Note Date Seen: Jan 30, 2024 Medical Necessity Reason Pt with a Central, PICC or Fol: No Subjective Patient reports: Feels better Other Systems: AF --> SR now Objective vital signs Vital Sign Date Time Temp Pulse Resp B/P (MAP) Pulse Ox O2 Delivery O2 Flow Rate FiO2 01/30/24 12:32 98.0 77 16 113/67 (82) 99 98.0 01/30/24 08:00 Room Air* 0 21 Total Intake and Output 01/29/24 01/29/24 01/30/24 15:00 23:00 07:00 Intake Total 300 ml Balance 300 ml medications Current Medications Medications Dose Ordered Sig/Lena Route Start Time Stop Time Status Last Admin Dose Admin Amiodarone HCl 250 ml @ 16.667 mls/ hr Q15H IV 01/29/24 20:00 01/29/24 20:00 16.667 MLS/HR Carvedilol 3.125 mg Q12HR PO 01/29/24 22:00 01/29/24 21:27 3.125 MG Apixaban 5 mg BID PO 01/29/24 22:00 01/30/24 09:55 5 MG Sodium Chloride 10 ml Q8HR IV 01/29/24 22:00 01/30/24 06:05 10 ML Acetaminophen/ Hydrocodone Bitart 1 tab Q4HP PRN PO 01/29/24 16:45 Ondansetron HCl 4 mg Q4HP PRN IV 01/29/24 16:45 Docusate Sodium 100 mg BIDPRN PRN PO 01/29/24 16:45 Acetaminophen 650 mg Q6HP PRN PO 01/29/24 16:45 Nitroglycerin 0.4 mg Q5MINP PRN SL 01/29/24 17:15 Morphine Sulfate 2 mg Q30M PRN IV 01/29/24 17:15 Digoxin 0.125 mg DAILY PO 01/30/24 10:00 Examination: GENERAL:Abnormal, HEENT:Abnormal, LUNGS:Abnormal, CVS:Abnormal, ABDOMEN:Abnormal laboratory and microbiology Laboratory Tests 01/30/24 05:09 Test 01/30/24 05:09 Range/Units Serum Glucose 95 74-106 mg/dL Problem List/Assessment/Plan Problem List/Assessment/Plan afib obesity HTN dc amio gtt resume bb and multaq cont doac dc home when stable medically fu dr peters monday Plan discussed with: Patient Date of Service: Jan 30, 2024 Billing Provider: BENJAMÍN MELISSA MD Common Visit Codes: NOT BILLABLE BENJAMÍN MELISSA MD Jan 30, 2024 12:52
--- NOTE | 2024-01-30 15:33 | DVHDS2 ---
Discharge Summary Date of Admission Jan 29, 2024 at 17:02 Date of Discharge: Jan 30, 2024 Admitting Diagnosis Atrial fibrillation with rapid ventricular rate Labs/Diagnostic Data: Laboratory Results Test 01/30/24 05:09 01/29/24 13:20 01/29/24 10:48 01/29/24 10:26 White Blood Count 7.0 10^3/uL (4.4-10.8) Red Blood Count 5.08 10^6/uL (4.0-5.20) Hemoglobin 14.5 g/dL (12.2-16.2) Hematocrit 44.4 % (36.0-46.0) Mean Corpuscular Volume 87.3 fL (80.0-100.0) Mean Corpuscular Hemoglobin 28.5 pg (28.0-32.0) Mean Corpuscular Hemoglobin Concent 32.7 g/dL (32.0-36.0) Red Cell Distribution Width 13.3 % (11.8-14.3) Platelet Count 175 10^3/uL (140-450) Mean Platelet Volume 11.7 fL (6.9-10.8) Neutrophils (%) (Auto) 62.5 % (37.0-80.0) Lymphocytes (%) (Auto) 28.0 % (10.0-50.0) Monocytes (%) (Auto) 7.1 % (0.0-12.0) Eosinophils (%) (Auto) 1.9 % (0.0-7.0) Basophils (%) (Auto) 0.5 % (0.0-2.0) Neutrophils # (Auto) 4.4 10 ^3/uL (1.6-8.6) Lymphocytes # (Auto) 2.0 10 ^3/uL (0.4-5.4) Monocytes # (Auto) 0.5 10 ^3/uL (0-1.3) Eosinophils # (Auto) 0.1 10 ^3/uL (0-0.8) Basophils # (Auto) 0 10 ^3/uL (0-0.2) Nucleated Red Blood Cells 0.1 % Sodium Level 142 mmol/L (136-145) Potassium Level 3.8 mmol/L (3.5-5.1) Chloride Level 112 mmol/L (98-107) Carbon Dioxide Level 23 mmol/L (20-31) Anion Gap 7 (5-15) Blood Urea Nitrogen 8 mg/dL (9-23) Creatinine 0.78 mg/dL (0.550-1.02) Glomerular Filtration Rate Calc 92 mL/min (>90) BUN/Creatinine Ratio 10.3 (10.0-20.0) Serum Glucose 95 mg/dL (74-106) Calcium Level 9.0 mg/dL (8.7-10.4) Total Bilirubin 0.5 mg/dL (0.2-1.0) Aspartate Amino Transferase (AST) 16 U/L (13-40) Alanine Aminotransferase (ALT) 29 U/L (7-40) Alkaline Phosphatase 49 U/L (46-116) Total Protein 6.0 g/dL (5.7-8.2) Albumin 3.6 g/dL (3.2-4.8) Digoxin Level < 0.14 ng/mL (0.8-2) Troponin I High Sensitivity 4 ng/L (</=34) Urine Color Light-yellow (Yellow) Urine Clarity Clear (Clear) Urine pH 5.0 (5.0-9.0) Urine Specific [place] 1.006 (1.001-1.035) Urine Protein Negative (Negative) Urine Ketones Negative (Negative) Urine Blood Negative /uL (Negative) Urine Nitrite Negative (Negative) Urine Bilirubin Negative (Negative) Urine Urobilinogen Normal mg/dL (Negative) Urine Leukocyte Esterase Negative /uL (Negative) Urine RBC None seen /hpf (0 - 4) Urine WBC <1 /hpf (0 - 5) Urine Squamous Epithelial Cells Few /hpf (<5) Urine Bacteria Many /hpf (None Seen) Urine Mucus Few (None Seen) Urine Glucose Normal mg/dL (Normal) Magnesium Level 2.2 mg/dL (1.6-2.6) B-Type Natriuretic Peptide 18.95 pg/mL (0-100) Thyroid Stimulating Hormone (TSH) 1.69 uIU/mL (0.55-4.78) Test 01/29/24 10:20 D-Dimer, Quantitative 0.20 mg/L FEU (0.0-0.49) Other Laboratory Tests 01/30/24 05:09 Brief Hx & Hospital Course: History of Present Illness The patient is a 53-year-old female with past medical history of atrial fibrillation and hypertension who presented to [facility] ED with complaint of palpitations. Patient reports symptoms progressively get worse with localized left chest pain, nausea, shortness of breath, getting worse that prompted this visit. Patient was seen and evaluated in the ED with a heart rate of 190, EKG showed AFib with RVR, blood pressure 101/76, temperature 98.1 F, O2 saturation 98% on oxygen, WBC 8.1, platelets 167, sodium 143, potassium 3.9, BUN 10, creatinine 0.83, glucose 78, troponin four, TSH 1.69. Chest x-ray show no acute cardiopulmonary disease. Patient was started on amiodarone drip, please see medication orders section in the computer. On my assessment, patient denied chest pain, no headache, no dizziness, no diaphoresis, currently on oxygen, no vomiting, no fever, no chills. Patient was admitted for further evaluation and medical management. Course of hospitalization: Patient was started on amiodarone bolus and drip. Patient converted to sinus rhythm. Patient was continued on her home anticoagulation with Eliquis. Cardiology consultation has been obtained. Patient has received 24 hour dose of amiodarone. Drip has been stopped. Cardiology reassess the patient was cleared the patient for discharge home. The patient will follow up with her home manager life sciences within one week. She was agreeable with discharge plan. All questions answered. Physical examination General: Alert and Oriented x3. No acute distress. Well-nourished. Eyes: EOMI. Anicteric. HENT: Moist mucous membranes. Lungs: Clear to auscultation bilaterally. No accessory muscle use. Cardiovascular: Regular rate and rhythm. No murmur. No JVD. Abdomen: Soft, non-tender and non-distended. No palpable masses. Extremities: No edema. Non-tender. Skin: No rashes or lesions. Warm. Neurologic: No focal neurological deficits. CN II-XII grossly intact, but not individually tested. Psychiatric: Cooperative. Appropriate mood and affect. Total time spent with patient discussing and formulating plan of care: 35 minutes. This medical document was created using an electronic medical record system with [employer] dictation system. Although this document has been carefully reviewed, there may still be some phonetic and typographical errors. These areas are purely typographical due to imperfections of the software programs, and do not reflect any compromise in the patient's medical care. Consults/Reason for consult Cardiology: AFib with RVR Condition at Discharge: Fair Final Diagnosis/Problems List Atrial fibrillation with rapid ventricular rate Secondary Diagnosis: History of Yaa fibrillation -obesity -primary hypertension Discharge Disposition: Home Discharge Instruct/Medications Diet: Cardiac 2g Na,low cholest Activity: No Restrictions, As Tolerated Follow Up/Referral: Follow up with the manager life sciences this Monday. Medications: Continue all previous home medications 36 Discharge Statement: "Patient was advised to return to the ER or call 911 if any headaches, dizziness, shortness of breath, chest pain, abdominal pain, bleeding, fevers, or worsening of medical condition. Patient was counseled about treatment plan, medications, possible side effects, patientverbalized understanding. All questions were answered to the best of my ability. This discharge took greater then 30 minutes in planning, reviewing documentation, counseling the patient, and discussing with other team members." ASSESSMENT ASSESSMENT Assessment Atrial fibrillation with rapid ventricular rate Date of Service: Jan 30, 2024 Billing Provider: MILLICENT REGAALDO NP Common Visit Codes: 75141-ISL/OBS DISCH DAY >30min MILLICENT REGALADO NP Jan 30, 2024 15:33
[2024-01-30] MEDS: HYDROcodone-ACET 5/325MG TAB PO PRN (16:03)
== END 2024-01-30 18:41 | disposition home or self-care (01) | DRG 309 ==
LOC: ER 08:46 → TELE 17:02 → TELE-WESTW 18:41
PROVIDERS: ADMIT Nurse Practitioner Family; ATTEND Nurse Practitioner Acute Care
DX: I48.0 Paroxysmal atrial fibrillation (principal); I20.0 Unstable angina; I10 Essential (primary) hypertension; E66.9 Obesity, unspecified; Z68.30 Body mass index [BMI] 30.0-30.9, adult; Z79.899 Other long term (current) drug therapy
CPT/HCPCS: 36415; 71045; 80053; 80162; 81001; 83735; 83880; 84443; 84484; 85025; 85379; 93005; 96374; 96375; G0378

== ENCOUNTER 2024-08-06 20:05 | Emergency (ER) | payer BC ==
[~2024-08-06] VITALS: Ht 154.9 cm; Wt 72.0 kg
--- NOTE | 2024-08-06 20:19 | ED.PDOC ---
History of Present Illness Chief Complaint: Chest Pain Comments 54-year-old female with a history of paroxysmal atrial fibrillation in the past now complains of some epigastric pain radiating to her chest and a feeling of rapid heart rate and occasional nausea and vomiting for the last 1 day. Unprovoked. Time Seen by MD: 20:09 Primary Care Provider: JOSHUA Allergies: Coded Allergies: NO KNOWN ALLERGIES (Unverified , 01/22/13) Home Meds Active Scripts Dronedarone Hydrochloride (Multaq) 400 Mg Tab, 400 MG PO BID, #60 TAB Prov:DEYANIRA AZAR MD 06/12/22 Apixaban Base (ELIQUIS) 5 Mg Tab, 5 MG PO BID, #60 TAB Prov:MAX CARDONA MD 12/05/20 Metoprolol Tartrate (Lopressor) 25 Mg Tb, 12.5 MG PO BID, #15 TAB Prov:MAX CARDONA MD 12/05/20 Reported Medications Carvedilol (Carvedilol) 3.125 Mg Tab, 1 TAB PO BID 06/11/22 Aspirin (ASPIRIN 81) 81 Mg Tab, 1 TAB PO DAILYPRN 12/05/20 Sumatriptan Succinate (Sumatriptan Succinate) 100 Mg Tab, 1 TAB PO DAILY PRN for MIGRAINES for 12 Days, #12 12/05/20 Information Source: Patient Severity: Moderate Timing: Days Duration: Since onset Past Medical History PAST MEDICAL HISTORY: AFIB, HTN Surgical History: Denies all surgeries FITTING ROOM OPERATOR History: No Pertinent FITTING ROOM OPERATOR History Family History Family History: Reviewed,noncontributory to illness Social History Smoker: Non-Smoker Alcohol: Denies ETOH Use Drugs: Denies Drug Use Lives In: Home Constitutional: reports: malaise Cardiovascular: reports: chest pain, palpitations Gastrointestinal: reports: abdominal pain, nausea, vomiting All Other Systems: Reviewed and Negative Physical Exam General Appearance: Mild Distress HEENT: Normal ENT Inspection, Pharynx Normal, TMs Normal Neck: Full Range of Motion, Non-Tender, Normal, Normal Inspection Respiratory: Chest Non-Tender, Lungs Clear, No Accessory Muscle Use, No Respiratory Distress, Normal Breath Sounds Cardiovascular: Regular Rate/Rhythm, Tachycardia Breast Exam: Deferred Gastrointestinal: Epigastric Genitalia: Deferred Pelvic: Deferred Rectal: Deferred Extremities: No calf tenderness, Normal capillary refill, Normal inspection, Normal range of motion, Non-tender, No pedal edema Musculoskeletal : Apperance: Normal Neurologic: Alert, sap bw architect II-XII nml as Tested, No Motor Deficits, Normal Affect, Normal Mood, No Sensory Deficits Cerebellar Function: Normal Reflexes: Normal Skin: Dry, Normal Color, Warm Lymphatic: No Adenopathy Was a procedure done? Was a procedure done?: No Differential Dx Considerations may include: Differential diagnosis includes but not limited to: angina, myocardial infarction, pulmonary embolus, pleurisy, musculoskeletal etiology and others X-Ray, Labs, Meds, VS Vital Signs Date Time Temp Pulse Resp B/P (MAP) Pulse Ox O2 Delivery O2 Flow Rate FiO2 08/06/24 22:23 99.2 118 18 125/62 (83) 99 99.2 08/06/24 22:12 110 08/06/24 20:45 135 22 116/95 08/06/24 20:21 99.4 140 22 116/95 (102) 96 99.4 08/06/24 20:12 146 Lab Test 08/06/24 21:20 08/06/24 20:18 Range/Units Troponin I High Sensitivity 3 L < 3 L </=34 ng/L White Blood Count 13.7 H 4.4-10.8 10^3/uL Red Blood Count 5.49 H 4.0-5.20 10^6/uL Hemoglobin 15.9 12.2-16.2 g/dL Hematocrit 46.6 H 36.0-46.0 % Mean Corpuscular Volume 84.9 80.0-100.0 fL Mean Corpuscular Hemoglobin 29.0 28.0-32.0 pg Mean Corpuscular Hemoglobin Concent 34.1 32.0-36.0 g/dL Red Cell Distribution Width 13.6 11.8-14.3 % Platelet Count 171 140-450 10^3/uL Mean Platelet Volume 10.5 6.9-10.8 fL Neutrophils (%) (Auto) 89.5 H 37.0-80.0 % Lymphocytes (%) (Auto) 5.9 L 10.0-50.0 % Monocytes (%) (Auto) 4.0 0.0-12.0 % Eosinophils (%) (Auto) 0.2 0.0-7.0 % Basophils (%) (Auto) 0.4 0.0-2.0 % Neutrophils # (Auto) 12.3 H 1.6-8.6 10 ^3/uL Lymphocytes # (Auto) 0.8 0.4-5.4 10 ^3/uL Monocytes # (Auto) 0.5 0-1.3 10 ^3/uL Eosinophils # (Auto) 0 0-0.8 10 ^3/uL Basophils # (Auto) 0.1 0-0.2 10 ^3/uL Nucleated Red Blood Cells 0.1 % Sodium Level 139 136-145 mmol/L Potassium Level 3.8 3.5-5.1 mmol/L Chloride Level 105 98-107 mmol/L Carbon Dioxide Level 24 20-31 mmol/L Anion Gap 10 5-15 Blood Urea Nitrogen 12 9-23 mg/dL Creatinine 0.81 0.550-1.02 mg/dL Glomerular Filtration Rate Calc 87 >90 mL/min BUN/Creatinine Ratio 14.8 10.0-20.0 Serum Glucose 121 H 74-106 mg/dL Calcium Level 9.3 8.7-10.4 mg/dL Total Bilirubin 0.7 0.2-1.0 mg/dL Aspartate Amino Transferase (AST) 19 13-40 U/L Alanine Aminotransferase (ALT) 27 7-40 U/L Alkaline Phosphatase 59 46-116 U/L B-Type Natriuretic Peptide 2.73 0-100 pg/mL Total Protein 7.2 5.7-8.2 g/dL Albumin 4.3 3.2-4.8 g/dL Current Medications Medications (Trade) Dose Ordered Sig/Lena Route Start Time Stop Time Status Last Admin Ondansetron HCl (Zofran Po) 8 mg ONCE ONCE PO 08/06/24 20:30 08/06/24 20:31 DC 08/06/24 20:30 Famotidine (Pepcid Tablet) 20 mg ONCE ONCE PO 08/06/24 20:30 08/06/24 20:31 DC 08/06/24 20:30 Al Hydrox/Mg Hydrox/Simethicone (Maalox Plus) 30 ml ONCE ONCE PO 08/06/24 20:30 08/06/24 20:31 DC 08/06/24 20:30 Morphine Sulfate 4 mg ONCE ONCE IV 08/06/24 20:45 08/06/24 20:46 DC 08/06/24 20:45 Ondansetron HCl (Zofran) 4 mg ONCE ONCE IV 08/06/24 20:45 08/06/24 20:46 DC 08/06/24 20:45 Sodium Chloride 1,000 ml @ 1,000 mls/hr Q1H ONCE IV 08/06/24 20:45 08/06/24 21:44 DC 08/06/24 20:45 Time of 1ST Reevaluation: 20:18 Reevaluation 1ST: Unchanged Patient Education/Counseling: Diagnosis, Treatment Family Education/Counseling: No Family Present Departure 1 Departure Time of Disposition: 22:00 Impression: Primary Impression: Epigastric abdominal pain Additional Impressions: Nausea & vomiting Chest pain Disposition: HOME / SELF CARE / HOMELESS Condition: Stable Discharged With: Self Critical Care Note Critical Care Time?: No Stability Stability form required: No Heart Score Heart Score: Heart Score Response (Comments) Value History Slightly Suspicious 0 EKG Normal 0 Age 45-64 1 Risk Factors No known risk factors 0 Troponin Normal limit 0 Total 1 ANATOLY LEWIS MD August 06, 2024 20:19
[2024-08-06] MEDS: MAALOX PLUS or MAALOX 30 ML PO ONE (20:30)
[2024-08-06] MEDS: ONDANSETRON ODT 4 MG TAB PO ONE (20:30)
[2024-08-06] MEDS: FAMOTIDINE 20 MG TAB PO ONE (20:30)
[2024-08-06 20:34] LABS: Basophils # (auto) 0.1 10 ^3/uL (0-0.2); Basophils % (auto) 0.4 % (0.0-2.0); Eosinophils # (auto) 0 10 ^3/uL (0-0.8); Eosinophils % (auto) 0.2 % (0.0-7.0); Hematocrit 46.6 % (36.0-46.0); Hemoglobin 15.9 g/dL (12.2-16.2); Lymphocytes # (auto) 0.8 10 ^3/uL (0.4-5.4); Lymphocytes % (auto) 5.9 % (10.0-50.0); Mean Corpuscular Hgb Conc. 34.1 g/dL (32.0-36.0); Mean Corpuscular Volume 84.9 fL (80.0-100.0); Monocytes # (auto) 0.5 10 ^3/uL (0-1.3); Neutrophils # (auto) 12.3 10 ^3/uL (1.6-8.6); Neutrophils % (auto) 89.5 % (37.0-80.0); Nucleated Red Blood Cells % 0.1 %; Platelet Count (auto) 171 10^3/uL (140-450); Red Blood Cells 5.49 10^6/uL (4.0-5.20); Red Cell Distribution Width 13.6 % (11.8-14.3); White Blood Cell 13.7 10^3/uL (4.4-10.8)
[2024-08-06] MEDS: SODIUM CHLORIDE 0.9% 1,000 ML IV ONE (20:45)
[2024-08-06] MEDS: MORPHINE SULFATE 4 MG/ML SYR/VIAL IV ONE (20:45)
[2024-08-06] MEDS: ONDANSETRON HCL 4 MG/2 ML VIAL IV ONE (20:45)
[2024-08-06 20:50] LABS: Alanine Aminotransferase 27 U/L (7-40); Albumin 4.3 g/dL (3.2-4.8); Alkaline Phosphatase 59 U/L (46-116); Anion Gap 10 (5-15); Aspartate Aminotransferase 19 U/L (13-40); BUN/Creatinine Ratio 14.8 (10.0-20.0); Bilirubin, Total 0.7 mg/dL (0.2-1.0); Blood Urea Nitrogen 12 mg/dL (9-23); Calcium 9.3 mg/dL (8.7-10.4); Carbon Dioxide 24 mmol/L (20-31); Chloride 105 mmol/L (98-107); Potassium 3.8 mmol/L (3.5-5.1); Sodium 139 mmol/L (136-145); Total Protein 7.2 g/dL (5.7-8.2)
[2024-08-06 20:57] LABS: Glucose 121 mg/dL (74-106)
[2024-08-06 22:23] VITALS: BP 125/62; PULSE 118; RESP 18; TEMP 99.2; O2SAT 99
--- NOTE | 2024-08-06 23:30 | DVH ---
EXAM: XY CHEST PORTABLE CLINICAL HISTORY: chest pain TECHNIQUE: Single AP view of the chest WID: COMPARISON: XY CHEST PORTABLE on DOS: 01/29/24 Lines and tubes: None Chest: The heart size and pulmonary vasculature is within normal limits. No pleural effusion, pneumothorax, or consolidation. The osseous structures are grossly intact. IMPRESSION: No acute cardiopulmonary abnormality.
--- NOTE | 2024-08-07 22:00 | ECG ---
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
--- NOTE | 2024-08-07 22:01 | ECG ---
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
== END 2024-08-07 01:42 | disposition home or self-care (01) ==
LOC: ER 20:05
DX: R10.13 Epigastric pain (principal); R11.2 Nausea with vomiting, unspecified; R07.9 Chest pain, unspecified; I48.91 Unspecified atrial fibrillation; I10 Essential (primary) hypertension; Z79.01 Long term (current) use of anticoagulants; Z79.899 Other long term (current) drug therapy
CPT/HCPCS: 36415; 71045; 80053; 83880; 84484; 85025; 93005; 96361; 96374; 96375; 99285; J2270; J2405; J7030; Q0162

== ENCOUNTER 2024-08-17 05:12 | Inpatient (IN) | payer BC ==
[~2024-08-17] VITALS: Ht 154.9 cm; Wt 76.7 kg
[2024-08-17] VITALS (7 sets, daily range): BP systolic 109–122; BP diastolic 58–67; PULSE 70–162; RESP 15–74; TEMP 97.7–98; O2SAT 93–100
--- NOTE | 2024-08-17 05:31 | ED.PDOC ---
HPI Comments 54-year-old female who came to ER via EMS for chest pains. Patient has history hypertension and AFib. States she woke up from her sleep around 3:30 a.m., due to sudden-onset headaches, weakness, dizziness, and had an episode of nausea and vomiting. Patient then will develop substernal chest pressure with palpitations. Upon arrival of paramedics, patient noted to be in Afib in RVR. Patient was given IV fluids and rushed to the ER. Patient states she usually g ets Afib once a year but recently she has been getting it more often (3x) Chief Complaint: Chest Pain Time Seen by MD: 05:30 Primary Care Provider: JOSHUA Loza Notes: Ems Helicopter Pilot Notes Allergies: Coded Allergies: NO KNOWN ALLERGIES (Unverified , 01/22/13) Home Meds Active Scripts Dronedarone Hydrochloride (Multaq) 400 Mg Tab, 400 MG PO BID, #60 TAB Prov:DEYANIRA AZAR MD 06/12/22 Apixaban Base (ELIQUIS) 5 Mg Tab, 5 MG PO BID, #60 TAB Prov:MAX CARDONA MD 12/05/20 Metoprolol Tartrate (Lopressor) 25 Mg Tb, 12.5 MG PO BID, #15 TAB Prov:MAX CARDONA MD 12/05/20 Reported Medications Carvedilol (Carvedilol) 3.125 Mg Tab, 1 TAB PO BID 06/11/22 Aspirin (ASPIRIN 81) 81 Mg Tab, 1 TAB PO DAILYPRN 12/05/20 Sumatriptan Succinate (Sumatriptan Succinate) 100 Mg Tab, 1 TAB PO DAILY PRN for MIGRAINES for 12 Days, #12 12/05/20 Information Source: Patient, Emergency Med Personnel Mode of Arrival: EMS Severity: Moderate Timing: Hours Duration: Since onset Location: Substernal Radiation: No Radiation Quality: Pressure Onset: At Rest Cardiac Risk Factors: HTN, Other (Afib) PE Risk Factors: None History of: Similar pain in past Associated Signs and Symptoms: Palpitations, N/V Past Medical History PAST MEDICAL HISTORY: AFIB, HTN Surgical History: Denies all surgeries INDUSTRIAL ENGINEERING INTERN History: No Pertinent INDUSTRIAL ENGINEERING INTERN History Family History Family History: Reviewed,noncontributory to illness Social History Smoker: Non-Smoker Alcohol: Denies ETOH Use Drugs: Denies Drug Use Lives In: Home Constitutional: reports: weakness; denies: chills, diaphoresis, fatigue, fever, malaise, sweats, others EENTM: denies: blurred vision, double vision, ear bleeding, ear discharge, ear drainage, ear pain, ear ringing, eye pain, eye redness, hearing loss, mouth pain, mouth swelling, nasal discharge, nose bleeding, nose congestion, nose pain, photophobia, tearing, throat pain, throat swelling, voice changes, others Respiratory: denies: cough, hemoptysis, orthopnea, SOB at rest, shortness of breath, SOB with excertion, stridor, wheezing, others Cardiovascular: reports: chest pain, dizzy spells, palpitations; denies: diaphoresis, Dyspnea on exertion, edema, irregular heart beat, left arm pain, lightheadedness, PND, syncope, others Gastrointestinal: reports: nausea, vomiting; denies: abdomen distended, abdominal pain, blood streaked bowels, constipated, diarrhea, dysphagia, difficulty swallowing, hematemesis, melena, poor appetite, poor fluid intake, rectal bleeding, rectal pain, others Genitourinary: denies: abnormal vagina bleeding, burning, dyspareunia, dysuria, flank pain, frequency, hematuria, incontinence, pain, , vagina discharge, urgency, others Neurological: reports: headache; denies: dizziness, fainting, left sided numbness, left sided weakness, numbness, paresthesia, pre-existing deficit, right sided numbness, right sided weakness, seizure, speech problems, tingling, tremors, weakness, others Musculoskeletal: denies: back pain, gout, joint pain, joint swelling, muscle pain, muscle stiffness, neck pain, others Integumetry: denies: bruises, change in color, change in hair/nails, dryness, laceration, lesions, lumps, rash, wounds, others Allergic/Immunocompromised: denies: Difficulty Healing, Frequent Infections, Hives, Itching, others Hematologic/Lymphatic: denies: anemia, blood clots, easy bleeding, easy bruising, swollen glands, others Endocrine: denies: excessive hunger, excessive sweating, excessive thirst, excessive urination, flushing, intolerance to cold, intolerance to heat, unexplained weight gain, unexplained weight loss, others Psychiatric: denies: anxiety, bipolar disorder, depression, hopeless, panic disorder, schizophrenia, sleepless, suicidal, others Physical Exam General Appearance: No Apparent Distress, Normal HEENT: Normal ENT Inspection, Pharynx Normal, TMs Normal Neck: Full Range of Motion, Non-Tender, Normal, Normal Inspection Respiratory: Chest Non-Tender, Lungs Clear, No Accessory Muscle Use, No Respiratory Distress, Normal Breath Sounds Cardiovascular: No Edema, No JVD, No Murmur, No Gallop, Normal Peripheral Pulse s, Regular Rate/Rhythm Breast Exam: Deferred Gastrointestinal: No Organomegaly, Non Tender, No Pulsatile Mass, Normal Bowel Sounds, Soft Genitalia: Deferred Pelvic: Deferred Rectal: Deferred Extremities: No calf tenderness, Normal capillary refill, Normal inspection, Normal range of motion, Non-tender, No pedal edema Musculoskeletal : Apperance: Normal Neurologic: Alert, state game warden II-XII nml as Tested, No Motor Deficits, Normal Affect, Normal Mood, No Sensory Deficits Cerebellar Function: Normal Reflexes: Normal Skin: Dry, Normal Color, Warm Lymphatic: No Adenopathy Was a procedure done? Was a procedure done?: No CP Differential Dx Differential Diagnosis: A-fib, Angina, Anxiety / Panic Attack, PSVT, Sinus Tachycardia Differential Diagnosis: Angina, Chest Wall Pain, Costochondritis, Esophageal reflux/spasm, Gastritis, Myocardial Infarction X-Ray, Labs, Meds, VS Vital Signs Date Time Temp Pulse Resp B/P (MAP) Pulse Ox O2 Delivery O2 Flow Rate FiO2 08/17/24 05:28 164 08/17/24 05:12 99.0 140 18 93/52 (66) 97 99.0 Time of 1ST Reevaluation: 05:24 Reevaluation 1ST: Unchanged Patient Education/Counseling: Diagnosis, Treatment Family Education/Counseling: No Family Present Departure 1 Departure Time of Disposition: 05:45 Impression: Primary Impression: Atrial fibrillation with RVR Additional Impression: Intermediate coronary syndrome Disposition: ADMITTED INPATIENT Admit to: Tele Condition: Guarded Discharged With: Self Comments Atrial Fibrillation with RVR Chief Complaint: Palpitations and rapid heart rate History of Present Illness: 54-year-old female with known history of paroxysmal atrial fibrillation and hypertension presents via EMS with acute onset of palpitations, rapid heart rate, dull frontal headache, generalized weakness, and dizziness. On presentation, patient was found to be in atrial fibrillation with heart rate ranging between 140-160 beats per minute. Review of Systems: Constitutional: Positive for generalized weakness Cardiovascular: Positive for palpitations Neurological: Positive for dizziness, frontal headache All other systems reviewed and negative Medications: Current outpatient medications: - Medication list not available at time of documentation Medications given in ED: - Metoprolol IV - Metoprolol PO Past Medical History: 1. Paroxysmal atrial fibrillation 2. Hypertension Vital Signs: Heart Rate: 140-160 bpm, irregular Physical Exam: Limited physical exam details available from puppet master Lab Results: Pending studies: - Troponin - Complete blood count (CBC) - Chemistry panel Imaging and Other Relevant Results: Chest X-ray: Shows pulmonary congestion Medical Decision Making: Summary Statement: 54-year-old female with history of paroxysmal atrial fibrillation presenting with symptomatic rapid atrial fibrillation requiring acute medical intervention. Problem List: 1. Atrial fibrillation with RVR 2. Intermediate coronary syndrome 3. Pulmonary congestion Differential Diagnosis: 1. Acute coronary syndrome 2. Thyroid storm 3. Sepsis 4. Pulmonary embolism 5. Medication non-compliance ED Course: Patient received IV and PO metoprolol for rate control. Cardiac workup initiated including troponin, basic labs, and chest imaging. Decision made to admit for further management. Assessment and Plan: 1. Atrial Fibrillation with Rapid Ventricular Response: - Admit to telemetry unit for continued rate control - Continue beta blockade with metoprolol - Assess anticoagulation status and initiate if appropriate 2. Intermediate Coronary Syndrome: - Awaiting troponin results - Cardiac monitoring - Further risk stratification during admission 3. Pulmonary Congestion: - Monitor respiratory status - Consider diuresis if symptoms worsen Billing Information: ICD-10: I48.91 - Unspecified atrial fibrillation ICD-10: R00.0 - Tachycardia, unspecified ICD-10: R51.9 - Headache, unspecified ICD-10: R42 - Dizziness and giddiness Critical Care Note Critical Care Time?: Yes (35 min-critical care time only) Critical care comment: AFib and RVR Total critical care time: Approximately 36 minutes Due to a high probability of clinically significant, life threatening deterioration, the patient required my highest level of preparedness to intervene emergently and I personally spent this critical care time directly and personally managing the patient. This critical care time included obtaining a history; examining the patient; pulse oximetry; ordering and review of studies; arranging urgent treatment with development of a management plan; evaluation of patient's response to treatment; frequent reassessment; and, discussions with other providers. This critical care time was performed to assess and manage the high probability of imminent, life-threatening deterioration that could result in multi-organ failure. It was exclusive of separately billable procedures and treating other patients. Stability Stability form required: No Heart Score Heart Score: Heart Score Response (Comments) Value History Moderate Suspicious 1 EKG Repolarization Disturb 1 Age 45-64 1 Risk Factors >3 or Hx ASHD 2 Troponin Normal limit 0 Total 5 I personally scribed for ANATOLY LEWIS MD ([email or web address]) on 08/17/24 at 05:31. Electronically submitted by Christian Knowles ([email or web address]). ANATOLY LEWIS MD August 17, 2024 05:31
--- NOTE | 2024-08-17 05:55 | DVH ---
EXAM: XY CHEST PORTABLE HISTORY: chest pain COMPARISON: XY CHEST PORTABLE on DOS: 08/06/24, XY CHEST PORTABLE on DOS: 01/29/24, XY CHEST XRAY 1 VIE W on DOS: 06/11/22, CHEST PORTABLE on DOS: 12/04/20, CXRP on DOS: 12/03/20 TECHNIQUE: Portable AP view of the chest was performed. FINDINGS: Lung volumes are somewhat low. No pneumothorax, consolidative infiltrates, or pulmonary edema. The he art is not enlarged. IMPRESSION: No acute intrathoracic process.
[2024-08-17] MEDS: METOPROLOL TARTRATE 1MG/1ML-5ML VIAL IV SCH (05:58)
[2024-08-17] MEDS ORDERED: DOCUSATE SOD 100 MG CAP PO PRN (06:00)
[2024-08-17] MEDS ORDERED: MORPHINE SULFATE INJ 2 MG/ml SYRG IV PRN ×2 (06:00)
[2024-08-17] MEDS: SODIUM CHLORIDE 0.9% 1,000 ML IV SCH ×2 (06:00→11:04)
[2024-08-17] MEDS ORDERED: NITROGLYCERIN 0.4 MG SL TAB SL PRN (06:00)
[2024-08-17 06:02] LABS: Basophils # (auto) 0.1 10 ^3/uL (0-0.2); Eosinophils # (auto) 0.1 10 ^3/uL (0-0.8); Eosinophils % (auto) 1.2 % (0.0-7.0); Hematocrit 42.4 % (36.0-46.0); Lymphocytes # (auto) 1.6 10 ^3/uL (0.4-5.4); Lymphocytes % (auto) 24.7 % (10.0-50.0); Mean Corpuscular Hemoglobin 28.1 pg (28.0-32.0); Mean Corpuscular Volume 85.1 fL (80.0-100.0); Monocytes # (auto) 0.5 10 ^3/uL (0-1.3); Monocytes % (auto) 7.9 % (0.0-12.0); Neutrophils # (auto) 4.2 10 ^3/uL (1.6-8.6); Neutrophils % (auto) 65.2 % (37.0-80.0); Nucleated Red Blood Cells % 0.1 %; Platelet Count (auto) 189 10^3/uL (140-450); Red Blood Cells 4.98 10^6/uL (4.0-5.20); Red Cell Distribution Width 13.6 % (11.8-14.3); White Blood Cell 6.5 10^3/uL (4.4-10.8)
[2024-08-17] MEDS: SODIUM CHLORIDE 0.9% 1,000 ML IVB ONE (06:02)
[2024-08-17] MEDS: METOPROLOL TARTRATE 25 MG TAB PO ONE (06:02)
--- NOTE | 2024-08-17 06:17 | DVHHP2 ---
History of Present Illness Reason for Visit: Palpitations History of Present Illness The patient is a 54-year-old female with past medical history of AFib and hypertension who presented to [facility] ED with complaint of chest pain. Patient reports symptoms progressively get worse with sudden headache, weakness, dizziness, the episode of nausea, vomiting, substernal chest pressure with palpitations, getting worse that prompted this visit. Patient was seen and evaluated in the ED, patient was noted to be in AFib in RVR heart rate 164, temperature 99.0 F, O2 saturation 97% on oxygen, blood pressure 93/52. Chest x- ray show no acute intrathoracic process. Patient was given Cardizem 5 mg IV x1, please see medication orders section in the computer. On my assessment, patient denied chest pain at this moment, no headache, no dizziness, no diaphoresis, currently on oxygen, no nausea, no vomiting, no fever, no chills. Patient was admitted for further evaluation and medical management. Past Medical History AFIB, HTN Past Surgical History Denies all surgeries Family History Reviewed, noncontributory to the management of this case. Past Social History The patient lives at home, denies smoking, alcohol or illicit drugs abuse. Review of Systems Constitutional: No: Fever, Chills, Sweats, Weakness, Malaise, Other Eyes: No: Pain, Vision change, Conjunctivae inflammation, Eyelid inflammation, Other, Redness ENT: No: Ear pain, Ear discharge, Nose pain, Nose discharge, Nose congestion, Mouth pain, Mouth swelling, Throat pain, Throat swelling, Other Respiratory: No: Cough, Dry, Shortness of breath, SOB with excertion, Wheezing, Hemoptysis, Pleuritic Pain, Sputum, Wheezing, Other Cardiovascular: Chest Pain, Palpitations, Other (Dizzy spells); No: Orthopnea, Paroxysmal Noc. Dyspnea, Edema, Lt Headedness Gastrointestinal: No: Nausea, Vomiting, Abdominal Pain, Diarrhea, Constipation, Melena, Hematochezia, Other Genitourinary: No Dysuria, No Frequency, No Incontinence, No Hematuria, No Retention, No Other Musculoskeletal: No: other, neck pain, shoulder pain, arm pain, back pain, hand pain, leg pain, foot pain Skin: No: Rash, Lesions, Jaundice, Bruising, Other Neurological: No: Weakness, Numbness, Incoordination, Change in speech, Confusion, Seizures, Other Allergies: Coded Allergies: NO KNOWN ALLERGIES (Unverified , 01/22/13) Exam Vital Signs Vital Signs Date Time Temp Pulse Resp B/P (MAP) Pulse Ox O2 Delivery O2 Flow Rate FiO2 08/17/24 05:58 168 106/58 08/17/24 05:52 96 Room Air* 0 21 08/17/24 05:52 98.1 18 98.1 General Appearance: Alert, Oriented X3, Cooperative, No acute distress HEENT: Atraumatic, PERRLA, EOMI, Mucous membr. moist/pink Respiratory: Clear to auscultation, Normal air movement Cardiovascular: Normal S1, Normal S2, No murmurs, Other (Irregular rate and rhythm,, AFib) Abdominal: Normal bowel sounds, Soft, No tenderness, No hepatospenomegaly, No masses Extremities: No clubbing, No cyanosis, No edema, Normal pulses, No tenderness/swelling Skin: No rashes, No breakdown, No significant lesion Neuro: Normal gait, Normal speech, Strength at 5/5 X4 ext, Normal tone, Sensation intact, Cranial nerves 3-12 NL, Reflexes 2+ Psych/Mental Status: Mental status NL, Mood NL Labs/Xrays Labs Test 08/17/24 05:49 Range/Units White Blood Count 6.5 4.4-10.8 10^3/uL Red Blood Count 4.98 4.0-5.20 10^6/uL Hemoglobin 14.0 12.2-16.2 g/dL Hematocrit 42.4 36.0-46.0 % Mean Corpuscular Volume 85.1 80.0-100.0 fL Mean Corpuscular Hemoglobin 28.1 28.0-32.0 pg Mean Corpuscular Hemoglobin Concent 33.0 32.0-36.0 g/dL Red Cell Distribution Width 13.6 11.8-14.3 % Platelet Count 189 140-450 10^3/uL Mean Platelet Volume 10.8 6.9-10.8 fL Neutrophils (%) (Auto) 65.2 37.0-80.0 % Lymphocytes (%) (Auto) 24.7 10.0-50.0 % Monocytes (%) (Auto) 7.9 0.0-12.0 % Eosinophils (%) (Auto) 1.2 0.0-7.0 % Basophils (%) (Auto) 1.0 0.0-2.0 % Neutrophils # (Auto) 4.2 1.6-8.6 10 ^3/uL Lymphocytes # (Auto) 1.6 0.4-5.4 10 ^3/uL Monocytes # (Auto) 0.5 0-1.3 10 ^3/uL Eosinophils # (Auto) 0.1 0-0.8 10 ^3/uL Basophils # (Auto) 0.1 0-0.2 10 ^3/uL Nucleated Red Blood Cells 0.1 % PATIENT: THOM PEDRAZA ACCT: [id number] UNIT: [id number] : 1970 LOC: ER ROOM / BED: / AGE / SEX: 54 / F ADM STATUS: REG ER SERVICE 3 ORDERING PHYSICIAN: ANATOLY LEWIS MD PROCEDURE(s): CXRP - CHEST PORTABLE REASON: chest pain ORDER NUMBER(s): [id number], ACCESSION NUMBER(s): [id number] EXAM: XY CHEST PORTABLE HISTORY: chest pain COMPARISON: XY CHEST PORTABLE on DOS: 08/06/24, XY CHEST PORTABLE on DOS: 01/29/24, XY CHEST XRAY 1 VIEW on DOS: 06/11/22, CHEST PORTABLE on DOS: 12/04/20, CXRP on DOS: 12/03/20 TECHNIQUE: Portable AP view of the chest was performed. FINDINGS: Lung volumes are somewhat low. No pneumothorax, consolidative infiltrates, or pulmonary edema. The heart is not enlarged. IMPRESSION: No acute intrathoracic process. Assessment/Plan Assessment/Plan Atrial fibrillation with RVR Intermediate coronary syndrome Plan 1. Admit to telemetry unit 2. Breathing treatment 3. Pain control management 4. Management of fluids and electrolytes 5. Consultation for Cardiology 6. Diagnostic tests chest x-ray 7. DVT prophylaxis-on Eliquis 8. Repeat labs CBC, CMP in a.m. 9. Continue with current medical management 10. Treatment plan discussed with patient and RN. Patient verbalized understanding. Plan discussed with: Patient, Other (RN) Problem List: (1) Atrial fibrillation with RVR (2) Intermediate coronary syndrome Date of Service: August 17, 2024 Billing Provider: RASHAD ALFONSO DNP Common Visit Codes: [id number] INP/OBS CARE (HIGH) RASHAD ALFONSO DNP August 17, 2024 06:17
[2024-08-17 06:18] LABS: Alanine Aminotransferase 25 U/L (7-40); Anion Gap 9 (5-15); BUN/Creatinine Ratio 16.3 (10.0-20.0); Blood Urea Nitrogen 15 mg/dL (9-23); Carbon Dioxide 26 mmol/L (20-31); Potassium 3.5 mmol/L (3.5-5.1); Sodium 142 mmol/L (136-145)
[2024-08-17 06:19] LABS: Albumin 3.5 g/dL (3.2-4.8)
[2024-08-17 06:25] LABS: Alkaline Phosphatase 46 U/L (46-116); Aspartate Aminotransferase 12 U/L (13-40); Bilirubin, Total 0.3 mg/dL (0.2-1.0); Calcium 8.6 mg/dL (8.7-10.4); Chloride 107 mmol/L (98-107); Glucose 122 mg/dL (74-106); Total Protein 5.4 g/dL (5.7-8.2)
[2024-08-17] MEDS: dilTIAZem 25 MG/5 ML VIAL IV ONE (06:32)
[2024-08-17 07:09] LABS: INR 1.01 (0.9-1.15); Partial Thromboplastin Time 25.5 SEC (24.5-34.5); Prothrombin Time 10.7 sec (9.3-11.8)
[2024-08-17] MEDS: NOREPINEPHRINE 8 MG/250ML KIT 250 ML IV ONE (07:27)
[2024-08-17] MEDS: LIDOCAINE 1% (LOCAL ANESTH.) PF 5ml SDV ID ONE (08:15)
[2024-08-17] MEDS: NOREPINEPHRINE 8 MG/250ML KIT 250 ML IV SCH (08:50)
[2024-08-17] MEDS: AMIODARONE BOLUS KIT 100 ML IV ONE (08:52)
[2024-08-17] MEDS: SODIUM CHLORIDE 0.9% 1,000 ML IV ONE (08:57)
--- NOTE | 2024-08-17 08:59 | DVH ---
CHEST RADIOGRAPH Indication: PICC LINE PLACEMENT. Technique: Single frontal view of the chest was obtained COMPARISON: XY CHEST PORTABLE on DOS: 08/17/24, XY CHEST PORTABLE on DOS: 08/06/24, XY CHEST PORTABLE o n DOS: 01/29/24, XY CHEST XRAY 1 VIEW on DOS: 06/11/22, CHEST PORTABLE on DOS: 12/04/20 FINDINGS: Lines and Tubes: Right PICC in satisfactory position Lungs: Congestion Pleura: No effusion. No pneumothorax. Cardiomediastinal contours: Unremarkable Bones: Unremarkable IMPRESSION: Right PICC in satisfactory position overlying the superior vena cava.
[2024-08-17] MEDS: AMIODARONE 360mg/200mL PREMIX 200 ML IV ONE (09:00)
[2024-08-17] MEDS: POTASSIUM EFFERVESENT TAB 25 MEQ PO ONE (09:45)
[2024-08-17] MEDS ORDERED: APIXABAN 5 MG TAB PO SCH (10:00)
[2024-08-17] MEDS ORDERED: METOPROLOL TARTRATE 25 MG TAB PO SCH (10:00)
--- NOTE | 2024-08-17 10:02 | DVHINCON2 ---
Date Seen: August 17, 2024 Referring Physician PAWAN Cunningham Reason for Consultation Palpitations History of Present Illness This is a pleasant 54-year-old female who presented to the emergency room via EMS with a chief complaint of palpitations. The patient reports she awoke around 0300 with a severe migraine headache associated with nausea and vomiting and soon after developing palpitations and chest pressure prompting her to call 911. Upon EMS arrival she was found in an atrial fibrillation rhythm with rapid ventricular rate for which she was medicated with NS x1 L and found with a blood sugar level of 113 mg/dL. She underwent multiple 12 lead electrocardiograms x2 in the emergency room revealing an atrial fibrillation rhythm with rapid ventricular rate up to 168 bpm and QTc 500 ms. Serial troponin levels are negative. She is currently on an amiodarone drip per pharmacy protocol. Denies any further palpitations, REYES, or N/V. Complains of intermittent chest pain, pressure-like. States she follows up in the outpatient setting with Dr. Rio malone with latest appointment being at the beginning of this month and with no medication changes. Reports undergoing an unremarkable transthoracic echocardiogram on 01/2024 and a non-ischemic stress test a year ago. Significant medical history includes unspecified atrial fibrillation on Eliquis/Coreg/Multaq/magnesium, migraine headaches, and obesity. Of note, patient reports normal SBP for her is 90s-100s mmHg. Past Medical History Past medical history reviewed. No other significant than mentioned above. Past Surgical History Hysterectomy Family History: Hypertension G8 MOTHER Family History Family history reviewed. Social History Denies the use of illicit drugs, alcohol, or tobacco use. Allergies: Coded Allergies: NO KNOWN ALLERGIES (Unverified , 01/22/13) Home Meds Active Scripts Dronedarone Hydrochloride (Multaq) 400 Mg Tab, 400 MG PO BID, #60 TAB Prov:DEYANIRA AZAR MD 06/12/22 Apixaban Base (ELIQUIS) 5 Mg Tab, 5 MG PO BID, #60 TAB Prov:MAX CARDONA MD 12/05/20 Metoprolol Tartrate (Lopressor) 25 Mg Tb, 12.5 MG PO BID, #15 TAB Prov:MAX CARDONA MD 12/05/20 Reported Medications Carvedilol (Carvedilol) 3.125 Mg Tab, 1 TAB PO BID 06/11/22 Aspirin (ASPIRIN 81) 81 Mg Tab, 1 TAB PO DAILYPRN 12/05/20 Sumatriptan Succinate (Sumatriptan Succinate) 100 Mg Tab, 1 TAB PO DAILY PRN for MIGRAINES for 12 Days, #12 12/05/20 Home Meds Home medications reviewed. Current Medications Current Medications Medications (Trade) Dose Ordered Sig/Lena Route PRN Reason Start Time Stop Time Status Last Admin Metoprolol Tartrate (Lopressor) 5 mg Q5M IV 08/17/24 05:30 08/17/24 05:41 DC 08/17/24 05:58 Apixaban (Eliquis) 5 mg BID PO 08/17/24 10:00 08/17/24 06:21 DC Metoprolol Tartrate (Lopressor Tablet) 25 mg BID PO 08/17/24 10:00 Future Hold Sodium Chloride 1,000 ml @ 60 mls/hr [id number] IV 08/17/24 06:00 Acetaminophen/ Hydrocodone Bitart ([place] 5/325MG Tab) 1 tab Q4HP PRN PO MODERATE PAIN (4-6 PAIN SCALE) 08/17/24 06:00 Ondansetron HCl (Zofran) 4 mg Q4HP PRN IV NAUSEA / VOMITING 08/17/24 06:00 Docusate Sodium (Colace Capsule) 100 mg BIDPRN PRN PO FOR CONSTIPATION 08/17/24 06:00 Morphine Sulfate 2 mg Q4HPRN PRN IV SEVERE PAIN (7-10 PAIN SCALE) 08/17/24 06:00 Nitroglycerin (Ntrostat Sublingual) 0.4 mg Q5MINP PRN SL FOR CHEST PAIN 08/17/24 06:00 Morphine Sulfate 2 mg Q30M PRN IV FOR CHEST PAIN 08/17/24 06:00 Apixaban (Eliquis) 5 mg BID PO 08/17/24 10:00 Norepinephrine Bitartrate 250 ml @ 3.75 mls/hr Q24H IV 08/17/24 07:15 08/17/24 09:44 DC 08/17/24 08:50 Sodium Chloride (Saline Lock Ns) 10 ml QSHIFT@10,22 IV 08/17/24 10:00 Sodium Chloride 1,000 ml @ 100 mls/hr Q10H IV 08/17/24 09:45 UNV Metoprolol Tartrate (Lopressor Tablet) 12.5 mg BID PO 08/17/24 22:00 UNV Review of Systems Constitutional: No symptom reported Ears, Nose, & Throat: No symptom reported Eyes: No symptom reported Neurological: Patient Pulmonary/Respiratory: No symptom reported Cardiovascular: Palpitations, chest pain Gastrointestinal: N/V Genitourinary: No symptom reported Musculoskeletal: No symptom reported Skin: No symptom reported Psychiatric: No symptom reported Endocrine: No symptom reported Hemotologic/Lymphatic: No symptom reported Vital Signs Vital Signs Date Time Temp Pulse Resp B/P (MAP) Pulse Ox O2 Delivery O2 Flow Rate FiO2 08/17/24 09:00 98.0 115 16 116/96 (103) 100 98.0 08/17/24 07:30 Nasal Cannula* 2 28 Physical Exam General Appearance: Cooperative. Well developed. Well nourished. In no acute distress Head Exam: Normal inspection Neck Exam: Normal inspection. Non-tender. Normal alignment Pulmonary/Respiratory: Chest non-tender. Clear bilateral breath sounds Cardiovascular/Chest: Irregularly irregular rate and rhythm. AFib 110s bpm. No murmurs. No JVD. Peripheral Pulses: 2+ Radial (R). 2+ Radial (L). 2+ Pedal (R). 2+ Pedal (L) Abdominal Exam: Normal bowel sounds. Soft. Nontender. No hepatospenomegaly. No masses Ankle Exam: Negative ankle edema Lower extremities: Negative lower extremity edema Neuro/Mental Status: A&O x4. Coherent Thoughts/Psych: Normal thought pattern. Appropriate mood and affect. Good judgement and insight Appearance: In no acute distress Skin Exam: Normal inspection. Normal color. Warm. Dry Labs/Diagnostic Data Labs Test 08/17/24 09:10 08/17/24 06:49 08/17/24 05:49 Range/Units Troponin I High Sensitivity 26 </=34 ng/L White Blood Count 6.5 4.4-10.8 10^3/uL Red Blood Count 4.98 4.0-5.20 10^6/uL Hemoglobin 14.0 12.2-16.2 g/dL Hematocrit 42.4 36.0-46.0 % Mean Corpuscular Volume 85.1 80.0-100.0 fL Mean Corpuscular Hemoglobin 28.1 28.0-32.0 pg Mean Corpuscular Hemoglobin Concent 33.0 32.0-36.0 g/dL Red Cell Distribution Width 13.6 11.8-14.3 % Platelet Count 189 140-450 10^3/uL Mean Platelet Volume 10.8 6.9-10.8 fL Neutrophils (%) (Auto) 65.2 37.0-80.0 % Lymphocytes (%) (Auto) 24.7 10.0-50.0 % Monocytes (%) (Auto) 7.9 0.0-12.0 % Eosinophils (%) (Auto) 1.2 0.0-7.0 % Basophils (%) (Auto) 1.0 0.0-2.0 % Neutrophils # (Auto) 4.2 1.6-8.6 10 ^3/uL Lymphocytes # (Auto) 1.6 0.4-5.4 10 ^3/uL Monocytes # (Auto) 0.5 0-1.3 10 ^3/uL Eosinophils # (Auto) 0.1 0-0.8 10 ^3/uL Basophils # (Auto) 0.1 0-0.2 10 ^3/uL Nucleated Red Blood Cells 0.1 % Prothrombin Time 10.7 9.3-11.8 sec Prothrombin Time INR 1.01 0.9-1.15 Activated Partial Thromboplast Time 25.5 24.5-34.5 SEC Sodium Level 142 136-145 mmol/L Potassium Level 3.5 3.5-5.1 mmol/L Chloride Level 107 98-107 mmol/L Carbon Dioxide Level 26 20-31 mmol/L Anion Gap 9 5-15 Blood Urea Nitrogen 15 9-23 mg/dL Creatinine 0.92 0.550-1.02 mg/dL Glomerular Filtration Rate Calc 75 >90 mL/min BUN/Creatinine Ratio 16.3 10.0-20.0 Serum Glucose 122 H 74-106 mg/dL Calcium Level 8.6 L 8.7-10.4 mg/dL Total Bilirubin 0.3 0.2-1.0 mg/dL Aspartate Amino Transferase (AST) 12 L 13-40 U/L Alanine Aminotransferase (ALT) 25 7-40 U/L Alkaline Phosphatase 46 46-116 U/L B-Type Natriuretic Peptide 15.09 0-100 pg/mL Total Protein 5.4 L 5.7-8.2 g/dL Albumin 3.5 3.2-4.8 g/dL Assessment Unspecified atrial fibrillation with RVR (on Eliquis/Coreg/Multaq/Mg) Chest pain rule out coronary artery disease Rule out structural heart disease Acute on chronic migraine headache Obesity Plan/Recommendation (Dr. Gonzales) We will continue further cardiac evaluation with a transthoracic echocardiogram to evaluate cardiac function. Given continuation of chest pain the patient is scheduled for a stress test at first availability. Continue amiodarone drip per pharmacy protocol and initiate low-dose beta-sage as BP tolerates (normal SBP for patient 90s-100s mmHg). Continue Eliquis therapy ([id number] Score 1 point, HAS-BLED Score 0 points) and replete electrolytes as necessary for a target K level >4 and Mg level >2. TSH and Mg levels pending at this time. Monitor ECG changes and notify. Thank you for allowing us to participate in this patient's care. Please call if you have any questions or concerns. This medical document was created using an electronic medical record system with voice recognition software and computerized dictation system. Although this document has been carefully reviewed, there might still be some phonetic and typographical errors. Occasional wrong-word or ``sound-alike substitutions may have occurred due to the inherent limitations of voice recognition software. These areas are purely typographical due to imperfections of the software programs and do not reflect any compromise in the patient's medical care. Please read the chart carefully and recognize, using context, where these substitutions have occurred. Plan discussed with: Patient, Spouse, Other NYHA Physical activity limitations: NA Date of Service: August 17, 2024 Billing Provider: MELISSA SOSA Cardiology Common Codes: [id number] INP/OBS CARE (High) MELISSA SOSA August 17, 2024 10:01
[2024-08-17] MEDS: ONDANSETRON HCL 4 MG/2 ML VIAL IV PRN (10:12)
[2024-08-17] MEDS: SODIUM CHLOR 0.9% PF (SALINE LOCK) 10ML VIAL/SYR IV SCH (10:12)
[2024-08-17] MEDS: HYDROcodone-ACET 5/325MG TAB PO PRN (10:13)
[2024-08-17] MEDS: APIXABAN 5 MG TAB PO SCH (10:13)
[2024-08-17] MEDS: MAGNESIUM SULFATE 1GM/100ML 100 ML IV ONE (11:33)
[2024-08-17 12:18] LABS: Urine Bacteria FEW /hpf (None Seen); Urine Blood Negative /uL (Negative); Urine Clarity Clear (Clear); Urine Color Colorless (Yellow); Urine Protein, UAD Negative (Negative); Urine Specific Gravity 1.003 (1.001-1.035); Urine Squamous Epithelial Cell None Seen /hpf (<5); Urine Urobilinogen Normal (Negative); Urine WBC < 1 /HPF (0-5); Urine pH 6.5 (5.0-9.0)
[2024-08-17] MEDS: AMIODARONE 360mg/200mL PREMIX 200 ML IV SCH (15:00)
--- NOTE | 2024-08-17 19:55 | DVHSR ---
APPROVED REPORT EXAM: Two-dimensional and M-mode echocardiogram with Doppler and color Doppler. Blood Pressure: 101/63 mmHg INDICATION Atrial Fibrillation RISK FACTORS Height: 5' 1", Weight: 149 DIMENSIONS LVDd3.7 (3.8-5.7cm)LA (2D)2.9 (1.9-4.0cm)Aortic Root2.9 (2.0-3.7cm) LVDs2.5 (2.5-4.0cm)LA (MM) (1.9-4.0cm)Aortic Cusp Exc1.7 (1.5-2.0cm) EF (%) 60.0 (55-70%)Rt. Atrium3.2 (1.9-4.0cm)Asc. Aorta cm IVSd1.0 (0.7-1.1cm)RV (D) (1.8-2.4cm) PWd0.8 (0.7-1.1cm) Mitral Valve MitralMitral Stenosis E wave1.00m/sMV Mean GR.mmHg E/A ratio0.02D MVAcm2 Aortic Valve Aortic ValveAortic Stenosis V10.80m/Dandre Mean GR.2mmHg V21.00m/Dandre Peak GR.4mmHg LVOT Diameter2.1 (1.8-2.4cm)Doppler AVA2.77cm2 Pulmonic Valve V20.60m/s Tricuspid Valve TR Velocity2.80m/s [id number] Conclusion Left ventricle: Left ventricle is normal size with normal systolic function. LVEF was 55-60%. Ther e was no gross wall motion abnormality. Right ventricle was normal size with normal systolic function. Both atria were normal size. Aortic valve was not well visualized. There was no aortic insufficiency/stenosis. There was trace m itral regurgitation. There was trace mitral regurgitation. There was no pulmonary valve insufficien cy. There was intermediate possibility for mild pulmonary hypertension. Right ventricular systolic press ure was assessed at 38 mm Hg. There was no pericardial effusion.
[2024-08-17] MEDS: METOPROLOL TARTRATE 25 MG TAB PO SCH (23:06)
[2024-08-18] VITALS (8 sets, daily range): BP systolic 101–111; BP diastolic 51–65; PULSE 55–94; RESP 16–18; TEMP 97.5–98.8; O2SAT 96–100
--- NOTE | 2024-08-18 04:36 | ECG ---
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
[2024-08-18 07:50] LABS: Basophils # (auto) 0 10 ^3/uL (0-0.2); Basophils % (auto) 0.4 % (0.0-2.0); Eosinophils # (auto) 0.1 10 ^3/uL (0-0.8); Hematocrit 40.8 % (36.0-46.0); Hemoglobin 13.1 g/dL (12.2-16.2); Lymphocytes # (auto) 1.5 10 ^3/uL (0.4-5.4); Lymphocytes % (auto) 24.1 % (10.0-50.0); Mean Corpuscular Hemoglobin 28.4 pg (28.0-32.0); Mean Corpuscular Hgb Conc. 32.2 g/dL (32.0-36.0); Monocytes # (auto) 0.4 10 ^3/uL (0-1.3); Monocytes % (auto) 6.3 % (0.0-12.0); Neutrophils # (auto) 4.3 10 ^3/uL (1.6-8.6); Neutrophils % (auto) 68.2 % (37.0-80.0); Nucleated Red Blood Cells % 0.1 %; Platelet Count (auto) 160 10^3/uL (140-450); Red Blood Cells 4.63 10^6/uL (4.0-5.20); Red Cell Distribution Width 14.1 % (11.8-14.3); White Blood Cell 6.3 10^3/uL (4.4-10.8)
[2024-08-18 08:07] LABS: Alanine Aminotransferase 29 U/L (7-40); Anion Gap 8 (5-15); BUN/Creatinine Ratio 6.8 (10.0-20.0); Carbon Dioxide 24 mmol/L (20-31); Glucose 100 mg/dL (74-106); Potassium 3.9 mmol/L (3.5-5.1); Sodium 143 mmol/L (136-145)
[2024-08-18 08:08] LABS: Albumin 3.4 g/dL (3.2-4.8); Bilirubin, Total 0.3 mg/dL (0.2-1.0)
[2024-08-18 08:13] LABS: Alkaline Phosphatase 42 U/L (46-116); Aspartate Aminotransferase 13 U/L (13-40); Blood Urea Nitrogen 5 mg/dL (9-23); Calcium 8.6 mg/dL (8.7-10.4); Chloride 111 mmol/L (98-107); Total Protein 5.5 g/dL (5.7-8.2)
--- NOTE | 2024-08-18 13:32 | DVHPN2 ---
Subjective The patient is seen and examined at bedside. Still complain of heart palpitation. However monitor showed sinus rhythm. Reviewed: Care Plan, H&P, Labs, Medications, Previous Orders, Radiology Changes from previous H/P or p: No Changes Eyes: No Pain, No Vision change, No Conjunctivae inflammation, No Eyelid inflammation, No Other, No Redness ENT: No Ear pain, No Ear discharge, No Nose pain, No Nose discharge, No Nose congestion, No Mouth pain, No Mouth swelling, No Throat pain, No Throat swelling, No Other Cardiovascular: Chest Pain, Palpitations; No Orthopnea, No Paroxysmal Noc. Dyspnea, No Edema, No Lt Headedness; Other (Dizzy spells) Respiratory: No Cough, No Dry, No Shortness of breath, No SOB with excertion, No Wheezing, No Hemoptysis, No Pleuritic Pain, No Sputum, No Other Gastrointestinal: No Nausea, No Vomiting, No Abdominal Pain, No Diarrhea, No Constipation, No Melena, No Hematochezia, No Other Genitourinary: No Dysuria, No Frequency, No Incontinence, No Hematuria, No Retention, No Other Musculoskeletal: No other, No neck pain, No shoulder pain, No arm pain, No back pain, No hand pain, No leg pain, No foot pain Skin: No Rash, No Lesions, No Jaundice, No Bruising, No Other Objective Vitals Vital Signs Date Time Temp Pulse Resp B/P (MAP) Pulse Ox O2 Delivery O2 Flow Rate FiO2 08/18/24 13:21 98.8 74 16 105/60 (75) 99 98.8 08/18/24 08:00 Room Air* 0 21 Intake/Output Intake and Output 08/18/24 07:00 Intake Total 3299.96 ml Balance 3299.96 ml Intake Oral 150 ml IV Total 3149.96 ml # Voids 5 # Bowel Movements 1 General Appearance: Alert, Oriented X3, Cooperative, No acute distress HEENT: Atraumatic, PERRLA, EOMI, Mucous membr. moist/pink Neck: Supple Lungs: Clear to auscultation, Normal air movement Cardiovascular: Regular rate, Normal S1, Normal S2, No murmurs, Gallops, Rubs Neuro: Cranial nerves 3-12 NL Psych/Mental Status: Mental status NL Medications Current Medications Medications Dose Ordered Sig/Lena Route Start Time Stop Time Status Last Admin Dose Admin Acetaminophen/ Hydrocodone Bitart 1 tab Q4HP PRN PO 08/17/24 06:00 08/17/24 15:30 1 TAB Ondansetron HCl 4 mg Q4HP PRN IV 08/17/24 06:00 08/18/24 09:44 4 MG Docusate Sodium 100 mg BIDPRN PRN PO 08/17/24 06:00 Morphine Sulfate 2 mg Q4HPRN PRN IV 08/17/24 06:00 Nitroglycerin 0.4 mg Q5MINP PRN SL 08/17/24 06:00 Morphine Sulfate 2 mg Q30M PRN IV 08/17/24 06:00 Apixaban 5 mg BID PO 08/17/24 10:00 08/18/24 09:26 5 MG Sodium Chloride 10 ml QSHIFT@10,22 IV 08/17/24 10:00 08/18/24 09:27 10 ML Sodium Chloride 1,000 ml @ 100 mls/hr Q10H IV 08/17/24 09:45 08/18/24 04:43 100 MLS/HR Metoprolol Tartrate 12.5 mg BID PO 08/17/24 22:00 08/17/24 23:06 12.5 MG Flecainide Acetate 50 mg Q12HR PO 08/18/24 22:00 Laboratory Results Laboratory Tests 08/18/24 06:54 Chemistry Test 08/18/24 06:54 Albumin 3.4 g/dL (3.2-4.8) Calcium Level 8.6 mg/dL (8.7-10.4) L Total Protein 5.5 g/dL (5.7-8.2) L LFT Test 08/18/24 06:54 Alanine Aminotransferase (ALT) 29 U/L (7-40) Alkaline Phosphatase 42 U/L (46-116) L Aspartate Amino Transferase (AST) 13 U/L (13-40) Total Bilirubin 0.3 mg/dL (0.2-1.0) Urinalysis Test 08/17/24 11:34 Urine Color Colorless (Yellow) Urine Clarity Clear (Clear) Urine pH 6.5 (5.0-9.0) Urine Specific Pe Ell 1.003 (1.001-1.035) Urine Protein Negative (Negative) Urine Ketones Negative (Negative) Urine Blood Negative /uL (Negative) Urine Nitrite Negative (Negative) Urine Bilirubin Negative (Negative) Urine Urobilinogen Normal mg/dL (Negative) Urine Leukocyte Esterase Negative /uL (Negative) Urine RBC <1 /hpf (0 - 4) Urine Microscopic WBC < 1 /HPF (0-5) Urine Squamous Epithelial Cells None seen /hpf (<5) Urine Bacteria Few /hpf (None Seen) H Urine Glucose Normal mg/dL (Normal) Labs and/or images reviewed: Labs reviewed by me Assessment/Plan Assessment/Plan Atrial fibrillation with RVR Intermediate coronary syndrome Migraine headache Obesity Plan: Continuing current management. Continuing with Multaq, Eliquis,, magnesium, Coreg Waiting for choir accompanist to see the patient We will follow up with echo Discharge planning This medical document was created using an electronic medical record system with [employer] direct computerized dictation system. Although this document has been carefully reviewed, there may still be some phonetic and typographical errors. These areas are purely typographical due to imperfections of the software programs, and do not reflect any compromise in the patient's medical care. Plan discussed with: Patient Date of Service: August 18, 2024 Billing Provider: AMADOU REYNOLDS MD Common Visit Codes: [id number] INP/OBS CARE(HIGH) AMADOU REYNOLDS MD August 18, 2024 13:32
[2024-08-18] MEDS: KETOROLAC TROMETH 30 MG/ML 1ML VIAL IV ONE (14:05)
[2024-08-18] MEDS: FLECAINIDE ACETATE 50 MG TAB PO ONE (14:05)
--- NOTE | 2024-08-18 14:27 | DVHPN2 ---
Consult Progress Note Date Seen: August 18, 2024 Subjective Review of Systems: CVS:Normal, RESPIRATORY:Normal, NEURO:Abnormal Other Systems: C/o REYES, denies any cardiac symptoms Objective vital signs Vital Sign Date Time Temp Pulse Resp B/P (MAP) Pulse Ox O2 Delivery O2 Flow Rate FiO2 08/18/24 13:21 98.8 74 16 105/60 (75) 99 98.8 08/18/24 08:00 Room Air* 0 21 Total Intake and Output 08/17/24 08/17/24 08/18/24 15:00 23:00 07:00 Intake Total 2699.98 ml 449.98 ml 150 ml Balance 2699.98 ml 449.98 ml 150 ml medications Current Medications Medications Dose Ordered Sig/Lena Route Start Time Stop Time Status Last Admin Dose Admin Acetaminophen/ Hydrocodone Bitart 1 tab Q4HP PRN PO 08/17/24 06:00 08/17/24 15:30 1 TAB Ondansetron HCl 4 mg Q4HP PRN IV 08/17/24 06:00 08/18/24 09:44 4 MG Docusate Sodium 100 mg BIDPRN PRN PO 08/17/24 06:00 Morphine Sulfate 2 mg Q4HPRN PRN IV 08/17/24 06:00 Nitroglycerin 0.4 mg Q5MINP PRN SL 08/17/24 06:00 Morphine Sulfate 2 mg Q30M PRN IV 08/17/24 06:00 Apixaban 5 mg BID PO 08/17/24 10:00 08/18/24 09:26 5 MG Sodium Chloride 10 ml QSHIFT@10,22 IV 08/17/24 10:00 08/18/24 09:27 10 ML Sodium Chloride 1,000 ml @ 100 mls/hr Q10H IV 08/17/24 09:45 08/18/24 14:05 100 MLS/HR Metoprolol Tartrate 12.5 mg BID PO 08/17/24 22:00 08/17/24 23:06 12.5 MG Flecainide Acetate 50 mg Q12HR PO 08/18/24 22:00 Examination: LUNGS:Normal, CVS:Normal (Transitioned into a NSR), NEURO:Normal laboratory and microbiology Laboratory Tests 08/18/24 06:54 Test 08/18/24 06:54 Range/Units Serum Glucose 100 74-106 mg/dL Problem List/Assessment/Plan Problem List/Assessment/Plan Paroxysmal atrial fibrillation with RVR, now NSR (on Eliquis/Coreg/Multaq/Mg) Chest pain rule out coronary artery disease Acute on chronic migraine headache Persistent REYES rule out acute processes Obesity Plan/Recommendation (Dr. Gonzales) Transthoracic echocardiogram revealed LVEF 55-60% without gross wall abnormality. Initially scheduled for a stress test but given patient's son upcoming high school graduation on Monday, she is requesting to proceed with ischemic work-up as outpatient with Dr. Calderon. She understands the risks of withholding inpatient work-up including the risk of a myocardial infarction and event . Transition to low-dose Flecainide and continue low-dose beta- sage as BP tolerates (normal SBP for patient 90s-100s mmHg). Continue Eliquis therapy ([id number] Score 1 point, HAS-BLED Score 0 points) and replete electrolytes as necessary for a target K level >4 and Mg level >2. Follow-up with Dr. Calderon within 1-2 weeks post-discharge. There is no further cardiac work-up indicated at this time. Kindly call if in need to re- consult. Thank you for allowing us to participate in this patient's care. This medical document was created using an electronic medical record system with voice recognition software and computerized dictation system. Although this document has been carefully reviewed, there might still be some phonetic and typographical errors. Occasional wrong-word or ``sound-alike substitutions may have occurred due to the inherent limitations of voice recognition software. These areas are purely typographical due to imperfections of the software programs and do not reflect any compromise in the patient's medical care. Please read the chart carefully and recognize, using context, where these substitutions have occurred. Plan discussed with: Patient, Spouse, Son, Other Date of Service: August 18, 2024 Billing Provider: MELISSA SOSA Cardiology Common Codes: [id number] HOSP CARE(MELISSA Vazquez August 18, 2024 14:27
--- NOTE | 2024-08-18 15:33 | DVH ---
CT HEAD WITHOUT CONTRAST INDICATION: Persistent REYES EXAM DATE: 08/18/2024 03:08 PM COMPARISON: CT HEAD WITHOUT CONTRAST on DOS: 06/12/22 RADIATION DOSE: CTDIvol: 53.69 mGy, DLP: 860.68 mGy*cm PROCEDURE: CT scans of the head were obtained from the vertex to the skull base. Sagittal and coronal reconstructions were provided. All CT scans at this medical facility are performed using dose modulation techniques as appropriate t o a performed exam including the following: Automated exposure control was utilized; adjustment of th e MA and/or KV according to patient size; and use of iterative reconstruction technique. FINDINGS: The brainshows normal morphology and bergeron-white matter differentiation, without intracra nial hemorrhage, extra-axial fluid collection, mass effect or acute large vessel infarct. The ventric les are normal in size. The basal cisterns are patent. The skull and visible facial bones are intact. The paranasal sinuses, mastoid air cells and middle ear cavities are well-aerated. The soft tissues of the scalp are unremarkable. IMPRESSION: No acute intracranial abnormality.
--- NOTE | 2024-08-18 16:06 | DVH ---
Exam: US US GUIDED VASCULAR ACCESS Date: 08/16/2024 04:12 PM Clinical History: PICC line placement Comparison: None Findings: Targeted sonographic evaluation of the upper arm vein was obtained utilizing grayscale and color Dopp ler imaging. IMPRESSION: Sonographic assistance for peripherally inserted central line placement. Please refer to procedural r eport for detailed findings.
[2024-08-18] MEDS: FLECAINIDE ACETATE 50 MG TAB PO SCH (22:02)
[2024-08-19] VITALS (8 sets, daily range): BP systolic 89–139; BP diastolic 33–70; PULSE 59–82; RESP 16–18; TEMP 97.4–98.6; O2SAT 95–99
--- NOTE | 2024-08-19 14:15 | DVHDS2 ---
Discharge Summary Date of Admission August 17, 2024 at 05:53 Date of Discharge: August 19, 2024 Admitting Diagnosis Atrial fibrillation with RVR Intermediate coronary syndrome Migraine headache Obesity Labs/Diagnostic Data: Laboratory Results Test 08/18/24 06:54 08/17/24 11:34 08/17/24 09:10 08/17/24 06:49 White Blood Count 6.3 10^3/uL (4.4-10.8) Red Blood Count 4.63 10^6/uL (4.0-5.20) Hemoglobin 13.1 g/dL (12.2-16.2) Hematocrit 40.8 % (36.0-46.0) Mean Corpuscular Volume 88.0 fL (80.0-100.0) Mean Corpuscular Hemoglobin 28.4 pg (28.0-32.0) Mean Corpuscular Hemoglobin Concent 32.2 g/dL (32.0-36.0) Red Cell Distribution Width 14.1 % (11.8-14.3) Platelet Count 160 10^3/uL (140-450) Mean Platelet Volume 10.6 fL (6.9-10.8) Neutrophils (%) (Auto) 68.2 % (37.0-80.0) Lymphocytes (%) (Auto) 24.1 % (10.0-50.0) Monocytes (%) (Auto) 6.3 % (0.0-12.0) Eosinophils (%) (Auto) 1.0 % (0.0-7.0) Basophils (%) (Auto) 0.4 % (0.0-2.0) Neutrophils # (Auto) 4.3 10 ^3/uL (1.6-8.6) Lymphocytes # (Auto) 1.5 10 ^3/uL (0.4-5.4) Monocytes # (Auto) 0.4 10 ^3/uL (0-1.3) Eosinophils # (Auto) 0.1 10 ^3/uL (0-0.8) Basophils # (Auto) 0 10 ^3/uL (0-0.2) Nucleated Red Blood Cells 0.1 % Sodium Level 143 mmol/L (136-145) Potassium Level 3.9 mmol/L (3.5-5.1) Chloride Level 111 mmol/L (98-107) Carbon Dioxide Level 24 mmol/L (20-31) Anion Gap 8 (5-15) Blood Urea Nitrogen 5 mg/dL (9-23) Creatinine 0.74 mg/dL (0.550-1.02) Glomerular Filtration Rate Calc 97 mL/min (>90) BUN/Creatinine Ratio 6.8 (10.0-20.0) Serum Glucose 100 mg/dL (74-106) Calcium Level 8.6 mg/dL (8.7-10.4) Total Bilirubin 0.3 mg/dL (0.2-1.0) Aspartate Amino Transferase (AST) 13 U/L (13-40) Alanine Aminotransferase (ALT) 29 U/L (7-40) Alkaline Phosphatase 42 U/L (46-116) Total Protein 5.5 g/dL (5.7-8.2) Albumin 3.4 g/dL (3.2-4.8) Urine Color Colorless (Yellow) Urine Clarity Clear (Clear) Urine pH 6.5 (5.0-9.0) Urine Specific [place] 1.003 (1.001-1.035) Urine Protein Negative (Negative) Urine Ketones Negative (Negative) Urine Blood Negative /uL (Negative) Urine Nitrite Negative (Negative) Urine Bilirubin Negative (Negative) Urine Urobilinogen Normal mg/dL (Negative) Urine Leukocyte Esterase Negative /uL (Negative) Urine RBC <1 /hpf (0 - 4) Urine Microscopic WBC < 1 /HPF (0-5) Urine Squamous Epithelial Cells None seen /hpf (<5) Urine Bacteria Few /hpf (None Seen) Urine Glucose Normal mg/dL (Normal) Troponin I High Sensitivity 26 ng/L (</=34) Magnesium Level 2.0 mg/dL (1.6-2.6) Triglycerides Level 95 mg/dL (< 150) Cholesterol Level 156 mg/dL (< 200) LDL Cholesterol 120 mg/dL (< 100) HDL Cholesterol 36 mg/dL (40-59) Test 08/17/24 05:49 Prothrombin Time 10.7 sec (9.3-11.8) Prothrombin Time INR 1.01 (0.9-1.15) Activated Partial Thromboplast Time 25.5 SEC (24.5-34.5) B-Type Natriuretic Peptide 15.09 pg/mL (0-100) Thyroid Stimulating Hormone (TSH) 1.88 uIU/mL (0.55-4.78) Other Laboratory Tests 08/18/24 06:54 Brief Hx & Hospital Course: This is a 54 years old female with past medical history of atrial fibrillation, hypertension come to [facility] for chest pain. The patient symptom worsening associated with headache, weakness, dizziness, nausea and vomiting and substernal chest pain with her palpitation. That is prompt her to come to emergency department for further evaluation. The patient was found to have atrial fibrillation with RVR her heart rate is 164. Chest x-ray showed no acute process. The patient was given Cardizem x1. The patient was admitted. Cardiology was consulted. The patient has echo showed: Transthoracic echocardiogram revealed LVEF 55-60% without gross wall abnormality. Landscape Management Technician's recommend for a stress test but given patient's son upcoming high school graduation on Monday, she is requesting to proceed with ischemic work- up as outpatient with Dr. Calderon. She understands the risks of withholding inpatient work-up including the risk of a myocardial infarction and event . Transition to low-dose Flecainide and continue low-dose beta-sage as BP tolerates (normal SBP for patient 90s-100s mmHg). Continue Eliquis therapy ([id number] Score 1 point, HAS-BLED Score 0 points) and replete electrolytes as necessary for a target K level >4 and Mg level >2. Follow-up with Dr. Calderon within 1-2 weeks post-discharge. Follow up with primary care physician 1-2 weeks. Continuing home med including Eliquis, aspirin, Multaq, Coreg and metoprolol. Physical exam: HEENT: Normocephalic atraumatic pupils equal react to light and accommodation. Extraocular muscles intact, conjunctiva pink, oropharynx moist, no thrush, no exudate. Lymphatic: No lymphadenopathy Cardiovascular exam: S1, S2 was heard. No murmurs, rubs, gallops Lung: Clear on auscultation bilaterally, no wheeze, rale, rhonchi. GI: Abdominal soft, nondistended, nontenderness, positive bowel sounds. Extremity: No crepitus, cyanosis, edema. Pedal pulses present bilateral. Full range of motion. Skin: Normal turgor, no rash. Psych: Alert, oriented x3. Neurology: No focal deficits, cranial nerve II to XII grossly intact. This medical document was created using an electronic medical record system with [employer] direct computerized dictation system. Although this document has been carefully reviewed, there may still be some phonetic and typographical errors. These areas are purely typographical due to imperfections of the software programs, and do not reflect any compromise in the patient's medical care. Condition at Discharge: Stable Final Diagnosis/Problems List Atrial fibrillation Intermediate coronary syndrome Migraine headache Obesity Discharge Disposition: Home Discharge Statement: "Patient was advised to return to the ER or call 911 if any headaches, dizziness, shortness of breath, chest pain, abdominal pain, bleeding, fevers, or worsening of medical condition. Patient was counseled about treatment plan, medications, possible side effects, patientverbalized understanding. All questions were answered to the best of my ability. This discharge took greater then 30 minutes in planning, reviewing documentation, counseling the patient, and discussing with other team members." ASSESSMENT ASSESSMENT Assessment Date of Service: August 19, 2024 Billing Provider: AMADUO REYNOLDS MD Common Visit Codes: 17404-ICV/OBS DISCH DAY >30min AMADOU REYNOLDS MD August 19, 2024 14:15
--- NOTE | 2024-08-20 13:41 | ECG ---
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
== END 2024-08-19 18:10 | disposition home or self-care (01) | DRG 309 ==
LOC: ER 05:12 → EDBD 05:12 → OVERFLOW 05:53 → TELE-WESTW 15:18
PROVIDERS: ADMIT Nurse Practitioner Family; ATTEND Nurse Practitioner Family
DX: I48.0 Paroxysmal atrial fibrillation (principal); I20.0 Unstable angina; E66.9 Obesity, unspecified; I10 Essential (primary) hypertension; G43.909 Migraine, unspecified, not intractable, without status migrainosus; Z79.01 Long term (current) use of anticoagulants; Z79.899 Other long term (current) drug therapy; Z79.82 Long term (current) use of aspirin; Z82.49 Family history of ischemic heart disease and other diseases of the circulatory system; Z90.710 Acquired absence of both cervix and uterus; Z68.28 Body mass index [BMI] 28.0-28.9, adult
CPT/HCPCS: 36415; 36569; 70450; 71045; 76937; 80053; 80061; 81001; 83735; 83880; 84443; 84484; 85025; 85610; 85730; 93005; 93306; 96360; 99291; G0378; J1885; J2405

== ENCOUNTER 2025-02-16 17:36 | Emergency (ER) | payer BC ==
[~2025-02-16] VITALS: Ht 154.9 cm; Wt 71.8 kg
[2025-02-16 17:40] VITALS: BP 148/90; PULSE 97; RESP 18; TEMP 98.2; O2SAT 97
== END 2025-02-16 18:12 | disposition left against medical advice (07) ==
LOC: ER 17:36
DX: R05.9 Cough, unspecified (principal); R06.02 Shortness of breath; Z79.899 Other long term (current) drug therapy

== ENCOUNTER 2025-03-20 13:26 | Inpatient (IN) | payer BC ==
[~2025-03-20] VITALS: Ht 154.9 cm; Wt 73.5 kg
--- NOTE | 2025-03-20 13:38 | ED.PDOC ---
HPI (NEURO) HPI Comments 54y F who presents to the ED via EMS for chief complaint of generalized weakness. Pt states she woke up this AM with weakness and malaise. Pt states she went for a walk and then came back and states she started to feel lightheaded and dizzy and preceded to have vomiting episode and pt called EMS. EMS arrived on scene and pt states she told EMS she has history of AFIB and took her blood thinner this AM. EMS notes pt had EKG with pt in AFIB and heart rate in the 170's. EMS gave pt IV fluids and upon arrival to the ED, pt had repeat EKG which showed pt in normal sinus rhythm. 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 Pt denies any other symptoms at this time. Chief Complaint: General Weakness Time Seen by MD: 13:36 Primary Care Provider: JOSHUA Loza Notes: Medications, Allergies Information Source: Patient, Emergency Med Personnel Mode of Arrival: EMS Brought in by: EMS Past Medical History PAST MEDICAL HISTORY: AFIB, HTN Surgical History: Denies all surgeries PRODUCTION CLOTH CUTTER History: No Pertinent PRODUCTION CLOTH CUTTER History Family History Family History: Reviewed,noncontributory to illness Social History Smoker: Non-Smoker Alcohol: Denies ETOH Use Drugs: Denies Drug Use Lives In: Home Constitutional: reports: malaise, weakness; denies: chills, diaphoresis, fatigue, fever, sweats, others EENTM: denies: blurred vision, double vision, ear bleeding, ear discharge, ear drainage, ear pain, ear ringing, eye pain, eye redness, hearing loss, mouth pain, mouth swelling, nasal discharge, nose bleeding, nose congestion, nose pain, photophobia, tearing, throat pain, throat swelling, voice changes, others Respiratory: denies: cough, hemoptysis, orthopnea, SOB at rest, shortness of breath, SOB with excertion, stridor, wheezing, others Cardiovascular: denies: chest pain, dizzy spells, diaphoresis, Dyspnea on exertion, edema, irregular heart beat, left arm pain, lightheadedness, palpitations, PND, syncope, others Gastrointestinal: reports: nausea, vomiting; denies: abdomen distended, abdominal pain, blood streaked bowels, constipated, diarrhea, dysphagia, difficulty swallowing, hematemesis, melena, poor appetite, poor fluid intake, rectal bleeding, rectal pain, others Genitourinary: denies: abnormal vagina bleeding, burning, dyspareunia, dysuria, flank pain, frequency, hematuria, incontinence, pain, , vagina discharge, urgency, others Neurological: reports: dizziness; denies: fainting, headache, left sided numbness, left sided weakness, numbness, paresthesia, pre-existing deficit, r ight sided numbness, right sided weakness, seizure, speech problems, tingling, tremors, weakness, others Musculoskeletal: denies: back pain, gout, joint pain, joint swelling, muscle pain, muscle stiffness, neck pain, others Integumetry: denies: bruises, change in color, change in hair/nails, dryness, laceration, lesions, lumps, rash, wounds, others Allergic/Immunocompromised: denies: Difficulty Healing, Frequent Infections, Hives, Itching, others Hematologic/Lymphatic: denies: anemia, blood clots, easy bleeding, easy bruising, swollen glands, others Endocrine: denies: excessive hunger, excessive sweating, excessive thirst, excessive urination, flushing, intolerance to cold, intolerance to heat, unexplained weight gain, unexplained weight loss, others Psychiatric: denies: anxiety, bipolar disorder, depression, hopeless, panic disorder, schizophrenia, sleepless, suicidal, others All Other Systems: Reviewed and Negative Physical Exam General Appearance: Moderate Distress HEENT: Normal ENT Inspection, Pharynx Normal, TMs Normal Neck: Full Range of Motion, Non-Tender, Normal, Normal Inspection Respiratory: Chest Non-Tender, Lungs Clear, No Accessory Muscle Use, No Respiratory Distress, Normal Breath Sounds Cardiovascular: No Edema, No JVD, No Murmur, No Gallop, Normal Peripheral Pulses, Regular Rate/Rhythm Breast Exam: Deferred Gastrointestinal: No Organomegaly, Non Tender, No Pulsatile Mass, Normal Bowel Sounds, Soft Genitalia: Deferred Pelvic: Deferred Rectal: Deferred Extremities: No calf tenderness, Normal capillary refill, Normal inspection, Normal range of motion, Non-tender, No pedal edema Musculoskeletal : Apperance: Normal Neurologic: Alert, 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 Was a procedure done?: No Differential Diagnosis (SZ) Seizure: Psychogenic Seizure, Closed Head Injury, CVA/TIA General Weakness: Anemia, Dehydration, Dysrhythmia, Electrolyte imbalance, Vertigo: central, Vertigo: peripheral, Other (afib) X-Ray, Labs, Meds, VS Vital Signs Date Time Temp Pulse Resp B/P (MAP) Pulse Ox O2 Delivery O2 Flow Rate FiO2 03/20/25 15:12 98.3 95 18 134/104 100 98.3 03/20/25 14:50 83 16 115/41 (65) 97 03/20/25 13:38 86 03/20/25 13:26 86 Lab Test 03/20/25 14:00 03/20/25 13:55 Range/Units White Blood Count 6.8 4.4-10.8 10^3/uL Red Blood Count 6.02 H 4.0-5.20 10^6/uL Hemoglobin 17.0 H 12.2-16.2 g/dL Hematocrit 51.6 H 36.0-46.0 % Mean Corpuscular Volume 85.7 80.0-100.0 fL Mean Corpuscular Hemoglobin 28.3 28.0-32.0 pg Mean Corpuscular Hemoglobin Concent 33.0 32.0-36.0 g/dL Red Cell Distribution Width 13.6 11.8-14.3 % Platelet Count 188 140-450 10^3/uL Mean Platelet Volume 9.9 6.9-10.8 fL Neutrophils (%) (Auto) 76.3 37.0-80.0 % Lymphocytes (%) (Auto) 17.9 10.0-50.0 % Monocytes (%) (Auto) 4.7 0.0-12.0 % Eosinophils (%) (Auto) 0.7 0.0-7.0 % Basophils (%) (Auto) 0.4 0.0-2.0 % Neutrophils # (Auto) 5.2 1.6-8.6 10 ^3/uL Lymphocytes # (Auto) 1.2 0.4-5.4 10 ^3/uL Monocytes # (Auto) 0.3 0-1.3 10 ^3/uL Eosinophils # (Auto) 0 0-0.8 10 ^3/uL Basophils # (Auto) 0 0-0.2 10 ^3/uL Nucleated Red Blood Cells 0.2 % Sodium Level 143 136-145 mmol/L Potassium Level 4.0 3.5-5.1 mmol/L Chloride Level 106 98-107 mmol/L Carbon Dioxide Level 27 20-31 mmol/L Anion Gap 10 5-15 Blood Urea Nitrogen 9 9-23 mg/dL Creatinine 0.84 0.550-1.02 mg/dL Glomerular Filtration Rate Calc 84 >90 mL/min BUN/Creatinine Ratio 10.7 10.0-20.0 Serum Glucose 88 74-106 mg/dL Calcium Level 9.6 8.7-10.4 mg/dL Troponin I High Sensitivity < 3 L </=34 ng/L Urine Color Light-yellow Yellow Urine Clarity Clear Clear Urine pH 7.0 5.0-9.0 Urine Specific [place] 1.004 1.001-1.035 Urine Protein Negative Negative Urine Ketones Trace Negative Urine Blood Negative Negative /uL Urine Nitrite Negative Negative Urine Bilirubin Negative Negative Urine Urobilinogen Normal Negative mg/dL Urine Leukocyte Esterase Negative Negative /uL Urine RBC <1 0 - 4 /hpf Urine Microscopic WBC < 1 0-5 /HPF Urine Squamous Epithelial Cells Few <5 /hpf Urine Bacteria Few H None Seen /hpf Urine Glucose Normal Normal mg/dL Current Medications Medications (Trade) Dose Ordered Sig/Lena Route Start Time Stop Time Status Last Admin Sodium Chloride 1,000 ml @ 1,000 mls/hr Q1H ONCE IV 03/20/25 14:00 03/20/25 14:59 DC 03/20/25 14:52 PROCEDURE(s): CXRP - CHEST PORTABLE IMPRESSION: Right upper to mid lung zone patchy opacity. Correlate for possible external artifact like hair. Pneumonia can not be completely excluded Patient alert. Complaining of generalized weakness. Chest x-ray reviewed does show pneumonia. Vitals stable. WBC within normal limits. Hemoglobin elevated. Establish intravenous access. Was given fluids. History of atrial fibrillation. EKG reviewed does not show any acute changes. Was given Rocephin. Was given azithromycin. Explained to the patient. Continue monitoring. Time of 1ST Reevaluation: 14:05 Reevaluation 1ST: Unchanged Patient Education/Counseling: Diagnosis, Treatment Family Education/Counseling: No Family Present Departure 1 Departure Time of Disposition: 16:09 Impression: Primary Impression: Pneumonia Qualified Codes: J18.9 - Pneumonia, unspecified organism Disposition: ADMITTED INPATIENT Admit to: Med Surg Condition: Guarded Critical Care Note Critical Care Time?: No Stability Stability form required: No Heart Score Heart Score: Heart Score Response (Comments) Value History Moderate Suspicious 1 EKG Normal 0 Age 45-64 1 Risk Factors 1 or 2 risk factors 1 Troponin Normal limit 0 Total 3 I personally scribed for MICHAEL MADISON MD ([email or web address]) on 03/20/25 at 13:38. Electronically submitted by Anali Melendez ([email or web address]). I personally scribed for MICHAEL MADISON MD ([email or web address]) on 03/20/25 at 14:35. Electronically submitted by Anali Melendez ([email or web address]). MICHAEL MADISON MD Mar 20, 2025 13:38
[2025-03-20 14:20] LABS: Hematocrit 51.6 % (36.0-46.0); Hemoglobin 17.0 g/dL (12.2-16.2); Mean Corpuscular Hemoglobin 28.3 pg (28.0-32.0); Mean Corpuscular Volume 85.7 fL (80.0-100.0); Nucleated Red Blood Cells % 0.2 %
[2025-03-20 14:25] LABS: Urine Protein, UAD Negative (Negative)
--- NOTE | 2025-03-20 14:29 | DVH ---
CHEST RADIOGRAPH INDICATION: sob TECHNIQUE: Single frontal view of the chest was obtained COMPARISON: XY CHEST PORTABLE on DOS: 08/17/24, XY CHEST PORTABLE on DOS: 08/17/24, XY CHEST PORTABLE on DOS: 08/06/24 FINDINGS: Lines and Tubes: None Lungs: Right upper to mid lung zone opacity Pleura: No effusion. No pneumothorax. Cardiomediastinal contours: Unremarkable Bones: No acute osseous abnormality. IMPRESSION: Right upper to mid lung zone patchy opacity. Correlate for possible external artifact like hair. Pneumonia can not be completely excluded.
[2025-03-20 14:31] LABS: Chloride 106 mmol/L (98-107); Potassium 4.0 mmol/L (3.5-5.1); Sodium 143 mmol/L (136-145)
[2025-03-20 14:32] LABS: Anion Gap 10 (5-15); Calcium 9.6 mg/dL (8.7-10.4); Carbon Dioxide 27 mmol/L (20-31)
[2025-03-20 14:37] LABS: BUN/Creatinine Ratio 10.7 (10.0-20.0); Glucose 88 mg/dL (74-106)
[2025-03-20 14:38] LABS: Blood Urea Nitrogen 9 mg/dL (9-23)
[2025-03-20] MEDS: SODIUM CHLORIDE 0.9% 1,000 ML IV ONE (14:52)
[2025-03-20 16:00] VITALS: PULSE 73; RESP 11; O2SAT 98
[2025-03-20] MEDS: AZITHROMYCIN 500MG/250ML 250 ML IV ONE (19:04)
[2025-03-20] MEDS ORDERED: ONDANSETRON HCL 4 MG/2 ML VIAL IV PRN (20:45)
[2025-03-20] MEDS ORDERED: MORPHINE SULFATE INJ 2 MG/ml SYRG IV PRN (20:45)
[2025-03-20] MEDS ORDERED: NITROGLYCERIN 0.4 MG SL TAB SL PRN (20:45)
[2025-03-20] MEDS ORDERED: ACETAMINOPHEN 325 MG TAB PO PRN (20:45)
[2025-03-20] MEDS ORDERED: DOCUSATE SOD 100 MG CAP PO PRN (20:45)
--- NOTE | 2025-03-20 20:46 | DVHHP2 ---
History of Present Illness Reason for Visit: Pneumonia, unspecified organism History of Present Illness The patient is a 54-year-old female with past medical history of AFib currently on Eliquis and hypertension who presented to [facility] ED with complaint of generalized weakness. Patient reports that she has been experiencing generalized weakness associated with lightheaded, dizziness, episode of nausea and vomiting, shortness of breaths, getting worse that prompted this visit. Patient was seen and evaluated in the ED, laboratory data shows WBC 6.8, hemoglobin 17.0, hematocrit 51.6, platelets 188, sodium 143, potassium 4.0, BUN 9, creatinine 0.84, GFR 84, glucose 88, calcium 9.6, troponin < 3, blood pressure 105/68, heart rate 73, temperature 98.3 F, O2 saturation 98% on room air. Chest x-ray revealing right upper to mid lung zone patchy opacity, correlate for possible external artifact like hair, pneumonia can not be completely excluded. Please see medication orders section in the computer. On my assessment, patient denied chest pain, no headache, dizziness, diaphoresis, shortness of breaths, no diarrhea, nausea, vomiting, fever, no chills. Patient was admitted for further evaluation and medical management. Past Medical History AFIB, HTN Past Surgical History Denies all surgeries Family History Reviewed, noncontributory to the management of this case. Past Social History The patient lives at home, denies smoking, alcohol or illicit drugs abuse. Review of Systems Constitutional: Yes: Weakness; No: Fever, Chills, Sweats, Malaise, Other Eyes: No: Pain, Vision change, Conjunctivae inflammation, Eyelid inflammation, Other, Redness ENT: No: Ear pain, Ear discharge, Nose pain, Nose discharge, Nose congestion, Mouth pain, Mouth swelling, Throat pain, Throat swelling, Other Respiratory: Shortness of breath; No: Cough, Dry, SOB with excertion, Wheezing, Hemoptysis, Pleuritic Pain, Sputum, Wheezing, Other Cardiovascular: No: Chest Pain, Palpitations, Orthopnea, Paroxysmal Noc. Dysp kae, Edema, Lt Headedness, Other Gastrointestinal: Nausea, Vomiting; No: Abdominal Pain, Diarrhea, Constipation, Melena, Hematochezia, Other Genitourinary: No Dysuria, No Frequency, No Incontinence, No Hematuria, No Retention, No Other Musculoskeletal: No: other, neck pain, shoulder pain, arm pain, back pain, hand pain, leg pain, foot pain Skin: No: Rash, Lesions, Jaundice, Bruising, Other Neurological: Other (Dizziness); No: Weakness, Numbness, Incoordination, Change in speech, Confusion, Seizures Allergies: Coded Allergies: NO KNOWN ALLERGIES (Unverified , 01/22/13) Exam Vital Signs Vital Signs Date Time Temp Pulse Resp B/P (MAP) Pulse Ox O2 Delivery O2 Flow Rate FiO2 03/20/25 18:00 75 17 120/49 (72) 96 03/20/25 16:00 Room Air* 0 21 03/20/25 15:12 98.3 98.3 General Appearance: Alert, Oriented X3, Cooperative, No acute distress HEENT: Atraumatic, PERRLA, EOMI, Mucous membr. moist/pink Respiratory: Normal air movement, Other (Diminished breath sounds) Cardiovascular: Regular rate, Normal S1, Normal S2, No murmurs Abdominal: Normal bowel sounds, Soft, No tenderness, No hepatospenomegaly, No masses Extremities: No clubbing, No cyanosis, No edema, Normal pulses, No tenderness/swelling Skin: No rashes, No significant lesion Neuro: Normal speech, Normal tone, Sensation intact, Cranial nerves 3-12 NL, Reflexes 2+, Other (Generalized weakness) Psych/Mental Status: Mental status NL, Mood NL Labs/Xrays Labs Test 03/20/25 14:00 03/20/25 13:55 Range/Units White Blood Count 6.8 4.4-10.8 10^3/uL Red Blood Count 6.02 H 4.0-5.20 10^6/uL Hemoglobin 17.0 H 12.2-16.2 g/dL Hematocrit 51.6 H 36.0-46.0 % Mean Corpuscular Volume 85.7 80.0-100.0 fL Mean Corpuscular Hemoglobin 28.3 28.0-32.0 pg Mean Corpuscular Hemoglobin Concent 33.0 32.0-36.0 g/dL Red Cell Distribution Width 13.6 11.8-14.3 % Platelet Count 188 140-450 10^3/uL Mean Platelet Volume 9.9 6.9-10.8 fL Neutrophils (%) (Auto) 76.3 37.0-80.0 % Lymphocytes (%) (Auto) 17.9 10.0-50.0 % Monocytes (%) (Auto) 4.7 0.0-12.0 % Eosinophils (%) (Auto) 0.7 0.0-7.0 % Basophils (%) (Auto) 0.4 0.0-2.0 % Neutrophils # (Auto) 5.2 1.6-8.6 10 ^3/uL Lymphocytes # (Auto) 1.2 0.4-5.4 10 ^3/uL Monocytes # (Auto) 0.3 0-1.3 10 ^3/uL Eosinophils # (Auto) 0 0-0.8 10 ^3/uL Basophils # (Auto) 0 0-0.2 10 ^3/uL Nucleated Red Blood Cells 0.2 % Sodium Level 143 136-145 mmol/L Potassium Level 4.0 3.5-5.1 mmol/L Chloride Level 106 98-107 mmol/L Carbon Dioxide Level 27 20-31 mmol/L Anion Gap 10 5-15 Blood Urea Nitrogen 9 9-23 mg/dL Creatinine 0.84 0.550-1.02 mg/dL Glomerular Filtration Rate Calc 84 >90 mL/min BUN/Creatinine Ratio 10.7 10.0-20.0 Serum Glucose 88 74-106 mg/dL Calcium Level 9.6 8.7-10.4 mg/dL Troponin I High Sensitivity < 3 L </=34 ng/L Urine Color Light-yellow Yellow Urine Clarity Clear Clear Urine pH 7.0 5.0-9.0 Urine Specific [place] 1.004 1.001-1.035 Urine Protein Negative Negative Urine Ketones Trace Negative Urine Blood Negative Negative /uL Urine Nitrite Negative Negative Urine Bilirubin Negative Negative Urine Urobilinogen Normal Negative mg/dL Urine Leukocyte Esterase Negative Negative /uL Urine RBC <1 0 - 4 /hpf Urine Microscopic WBC < 1 0-5 /HPF Urine Squamous Epithelial Cells Few <5 /hpf Urine Bacteria Few H None Seen /hpf Urine Glucose Normal Normal mg/dL PATIENT: THOM PEDRAZA ACCT: [id number] UNIT: [id number] : 1970 LOC: ER ROOM / BED: / AGE / SEX: 54 / F ADM STATUS: REG ER SERVICE [id number] ORDERING PHYSICIAN: MICHAEL MADISON MD PROCEDURE(s): CXRP - CHEST PORTABLE REASON: sob ORDER NUMBER(s): [id number], ACCESSION NUMBER(s): [id number] CHEST RADIOGRAPH INDICATION: sob TECHNIQUE: Single frontal view of the chest was obtained COMPARISON: XY CHEST PORTABLE on DOS: 08/17/24, XY CHEST PORTABLE on DOS: 08/17/24, XY CHEST PORTABLE on DOS: 08/06/24 FINDINGS: Lines and Tubes: None Lungs: Right upper to mid lung zone opacity Pleura: No effusion. No pneumothorax. Cardiomediastinal contours: Unremarkable Bones: No acute osseous abnormality. IMPRESSION: Right upper to mid lung zone patchy opacity. Correlate for possible external artifact like hair. Pneumonia can not be completely excluded. SEPSIS Sepsis Screen Date sepsis recognized/suspect: Mar 20, 2025 Time Sepsis recognized/suspect: 1600 Recent Procedure: No On Antibiotic Therapy: No Respiratory Rate >20: No Heart Rate >90: No Temp<36 C (96.8 F) or >38.3 C: No SBP <90 or MAP <65 mmHG: No New Acute Mental Status Change: No Is the patient on CPAP, BIPAP,: No Physician Orders Chest Portable (03/20/25 13:47) Electrocardigram (03/20/25 14:17) Carvedilol Tablet (Coreg Tablet) (03/20/25 22:00) Azithromycin 500mg/250ml (Zithromax 500m (03/21/25 10:00) Admit (03/20/25 20:38) Allergies (03/20/25 20:38) Code Status (03/20/25 20:38) Sodium Chloride Lock (Saline Lock Ns) (03/20/25 22:00) Oxygen Per Hour (03/20/25 20:38) Hydrocodone-Acet 5/325mg Tab ([place] 5/32 (03/20/25 20:45) Ondansetron Hcl (Zofran) (03/20/25 20:45) Docusate Sodium Capsule (Colace Capsule) (03/20/25 20:45) Fall Risk Precautions In Place QSHIFT (03/20/25 20:38) Complete Blood Count (03/21/25 04:00) Comprehensive Metabolic Panel (03/21/25 04:00) Cardiac Diet-2gna,Lofat,Lochol (03/21/25 Breakfast) Condition: Serious (03/20/25 20:38) Acetaminophen Tablet (Tylenol Tablet) (03/20/25 20:45) Maintain Bed Rest (03/20/25 20:38) Sequential Compression Device (03/20/25 ) Nitroglycerin Sublingual (Ntrostat Subli (03/20/25 20:45) Morphine Sulfate Injection (03/20/25 20:45) Stat Ekg For Chest Pain (03/20/25 20:38) Notify Md Of Changes From Base (03/20/25 20:38) Grading Supervisor For 24 Hours (03/20/25 20:38) Emergency Dysrhythmia Protocol (03/20/25 20:38) Rhythm Strips Once Every Shift (03/20/25 20:38) Oxygen By Nasal Cannula (03/20/25 20:38) Apixaban (Eliquis) (03/20/25 22:00) Vital Signs Date Time Temp Pulse Resp B/P (MAP) Pulse Ox O2 Delivery O2 Flow Rate FiO2 03/20/25 18:00 75 17 120/49 (72) 96 03/20/25 16:00 70 03/20/25 16:00 73 11 92/34 (53) 98 03/20/25 16:00 73 11 98 Room Air* 0 21 03/20/25 15:12 98.3 95 18 134/104 100 98.3 03/20/25 14:50 83 16 115/41 (65) 97 03/20/25 13:38 86 03/20/25 13:26 86 Laboratory Tests Test 03/20/25 14:00 White Blood Count 6.8 10^3/uL (4.4-10.8) Medications Medications Dose Ordered Sig/Lena Route Start Time Stop Time Status Last Admin Dose Admin Azithromycin 250 ml @ 125 mls/hr ONCE ONCE IV 03/20/25 16:15 03/20/25 18:14 DC 03/20/25 19:04 125 MLS/HR Ceftriaxone Sodium 50 ml @ 100 mls/hr ONCE ONCE IV 03/20/25 16:15 03/20/25 16:44 DC 03/20/25 19:04 100 MLS/HR Sodium Chloride 1,000 ml @ 1,000 mls/hr Q1H ONCE IV 03/20/25 14:00 03/20/25 14:59 DC 03/20/25 14:52 1,000 MLS/HR Assessment/Plan Assessment/Plan Pneumonia, unspecified organism Polycythemia vera Generalized weakness Plan 1. Admit to telemetry unit 2. Breathing treatment 3. Pain control management 4. IV antibiotic management 5. Management of fluids and electrolytes 6. Consultation for hospitalist 7. Diagnostic test chest x-ray 8. DVT prophylaxis-on SCDs 9. Repeat labs CBC, CMP in a.m. 10. Home medication reviewed and reconciled 11. Continue with current medical management 12. Treatment plan discussed with patient and RN. Patient verbalized understanding. Plan discussed with: Patient, Other (RN) My Orders Orders - RASHAD ALFONSO DNP Procedure Category Date Status Time Carvedilol Tablet PHA 03/20/25 Verified (Coreg Tablet) 22:00 Azithromycin PHA 03/21/25 Verified 500mg/250ml 10:00 Admit ADMIT 03/20/25 Verified 20:38 Allergies ELIZ 03/20/25 Verified 20:38 Code Status CODE 03/20/25 Verified 20:38 Sodium Chloride Lock PHA 03/20/25 Verified (Saline Lock Ns) 22:00 Oxygen Per Hour RT 03/20/25 Verified 20:38 Hydrocodone-Acet PHA 03/20/25 Verified 5/325mg Tab ([place] 20:45 Ondansetron Hcl PHA 03/20/25 Verified (Zofran) 20:45 Docusate Sodium PHA 03/20/25 Verified Capsule (Colace 20:45 Fall Risk Precautions ELIZ 03/20/[address] 20:38 Complete Blood Count LAB 03/21/25 Verified 04:00 Comprehensive LAB 03/21/25 Verified Metabolic Panel 04:00 Cardiac DIET 03/21/25 Verified Diet-2gna,Lofat,Lochol Breakfast Condition: Serious ELIZ 03/20/25 Verified 20:38 Acetaminophen Tablet PHA 03/20/25 Verified (Tylenol Tablet) 20:45 Maintain Bed Rest ELIZ 03/20/25 Verified 20:38 Sequential ELIZ 03/20/25 Verified Compression Device Nitroglycerin PHA 03/20/25 Verified Sublingual (Ntrostat 20:45 Morphine Sulfate PHA 03/20/25 Verified Injection 20:45 Stat Ekg For Chest ELIZ 03/20/25 Verified Pain 20:38 Notify Of Changes ELIZ 03/20/25 Verified From Base 20:38 Grading Supervisor For ELZI 03/20/25 Verified 24 Hours 20:38 Emergency Dysrhythmia [facility] 03/20/25 Verified Protocol 20:38 Rhythm Strips Once [facility] 03/20/25 Verified Every Shift 20:38 Oxygen By Nasal RT 03/20/25 Verified Cannula 20:38 Apixaban (Eliquis) PHA 03/20/25 Verified 22:00 Problem List: (1) Pneumonia, unspecified organism (2) Polycythemia vera (3) Generalized weakness Date of Service: Mar 20, 2025 Billing Provider: RASHAD ALFONSO DNP Common Visit Codes: [id number] INP/OBS CARE (HIGH) RASHAD ALFONSO DNP Mar 20, 2025 20:46
[2025-03-20 22:00] VITALS: PULSE 80
[2025-03-20 22:11] VITALS: BP 126/68; PULSE 76; RESP 18; TEMP 97.6; O2SAT 94
[2025-03-20 22:28] VITALS: PULSE 76; RESP 18; O2SAT 94
[2025-03-20] MEDS: CARVEDILOL 3.125 MG TAB PO SCH (23:19)
[2025-03-20] MEDS: APIXABAN 5 MG TAB PO SCH (23:20)
[2025-03-20] MEDS: SODIUM CHLOR 0.9% PF (SALINE LOCK) 10ML VIAL/SYR IV SCH (23:20)
[2025-03-21] VITALS (14 sets, daily range): BP systolic 105–122; BP diastolic 64–79; PULSE 68–80; RESP 16–18; TEMP 36.7; O2SAT 94–100
[2025-03-21] MEDS ORDERED: PROP60CA34 PO (02:23)
[2025-03-21 07:20] LABS: Hematocrit 41.8 % (36.0-46.0); Hemoglobin 13.7 g/dL (12.2-16.2); Mean Corpuscular Hemoglobin 28.1 pg (28.0-32.0); Mean Corpuscular Volume 85.6 fL (80.0-100.0); Nucleated Red Blood Cells % 0.2 %
[2025-03-21 07:46] LABS: Alanine Aminotransferase 28 U/L (7-40); Albumin 3.3 g/dL (3.2-4.8); Alkaline Phosphatase 48 U/L (46-116); Anion Gap 10 (5-15); BUN/Creatinine Ratio 9.6 (10.0-20.0); Carbon Dioxide 22 mmol/L (20-31); Glucose 92 mg/dL (74-106); Potassium 3.8 mmol/L (3.5-5.1); Sodium 142 mmol/L (136-145)
[2025-03-21 07:47] LABS: Bilirubin, Total 0.4 mg/dL (0.2-1.0)
[2025-03-21 07:51] LABS: Blood Urea Nitrogen 7 mg/dL (9-23); Calcium 8.2 mg/dL (8.7-10.4); Chloride 110 mmol/L (98-107); Total Protein 5.7 g/dL (5.7-8.2)
--- NOTE | 2025-03-21 08:27 | ECG ---
[facility] Test Date: 2025-03-20 Test Time: 13:26:42 Pat Name: THOM PEDRAZA Department: [facility] ED Patient ID: [id number] Room: 0295T A Gender: F Survey And Mapping Technician: BERYL PATTERSONB: 1970 Requested By: MICHAEL MADISON Order Number: [id number] Reading MD: Kaden Vegas Measurements Intervals Fidelity Rate: 86 P: 33 PA: 133 QRS: 51 QRSD: 88 T: 22 QT: 361 QTc: 432 Interpretive Statements Sinus rhythm Low voltage, precordial leads Electronically Signed On 03-21-2025 10:33:23 PST by Kaden Vegas Please click the below link to view image of tracing.
[2025-03-21] MEDS: IPRATROPIUM BROM 0.5 MG/2.5ML INH SOL NEB SCH (10:01)
[2025-03-21] MEDS: AZITHROMYCIN 500MG/250ML 250 ML IV SCH (10:06)
[2025-03-21] MEDS: PANTOPRAZOLE 40 MG/10 ML VIAL INJ IV SCH (10:06)
[2025-03-21] MEDS: ENOXAPARIN SOD 80 MG/0.8ML SYRINGE SC SCH (10:07)
[2025-03-21 10:13] LABS: Magnesium 2.3 mg/dL (1.6-2.6)
[2025-03-21 11:47] LABS: COVID19 ANTIGEN SOFIA FIA NEGATIVE (NEGATIVE)
[2025-03-21] MEDS: LEVALBUTEROL HCL 1.25 MG/3 ML NEB NEB SCH (12:58)
[2025-03-21 13:20] LABS: Free T4 (Free Thyroxine) 1.05 ng/dL (0.89-1.76)
[2025-03-21] MEDS ORDERED: LEVO750T40 PO (14:39)
[2025-03-21] MEDS: HYDROcodone-ACET 5/325MG TAB PO PRN (15:27)
--- NOTE | 2025-03-21 18:35 | DVHDSRES ---
Discharge Summary Date of Admission Resident Creating Document: YVAN PORTER RESIDENT Mar 20, 2025 at 20:38 Date of Discharge: Mar 21, 2025 Labs/Diagnostic Data: Laboratory Results Test 03/21/25 12:11 03/21/25 09:00 03/21/25 06:02 03/20/25 14:00 B-Type Natriuretic Peptide 152.28 pg/mL (0-100) Influenza Type A Antigen Negative (Negative) Influenza Type B Antigen Negative (Negative) SARS-CoV-2 Antigen (Rapid) Negative (NEGATIVE) White Blood Count 5.6 10^3/uL (4.4-10.8) Red Blood Count 4.88 10^6/uL (4.0-5.20) Hemoglobin 13.7 g/dL (12.2-16.2) Hematocrit 41.8 % (36.0-46.0) Mean Corpuscular Volume 85.6 fL (80.0-100.0) Mean Corpuscular Hemoglobin 28.1 pg (28.0-32.0) Mean Corpuscular Hemoglobin Concent 32.8 g/dL (32.0-36.0) Red Cell Distribution Width 13.8 % (11.8-14.3) Platelet Count 149 10^3/uL (140-450) Mean Platelet Volume 10.6 fL (6.9-10.8) Neutrophils (%) (Auto) 63.3 % (37.0-80.0) Lymphocytes (%) (Auto) 27.4 % (10.0-50.0) Monocytes (%) (Auto) 7.3 % (0.0-12.0) Eosinophils (%) (Auto) 1.6 % (0.0-7.0) Basophils (%) (Auto) 0.4 % (0.0-2.0) Neutrophils # (Auto) 3.6 10 ^3/uL (1.6-8.6) Lymphocytes # (Auto) 1.5 10 ^3/uL (0.4-5.4) Monocytes # (Auto) 0.4 10 ^3/uL (0-1.3) Eosinophils # (Auto) 0.1 10 ^3/uL (0-0.8) Basophils # (Auto) 0 10 ^3/uL (0-0.2) Nucleated Red Blood Cells 0.2 % Erythrocyte Sedimentation Rate 3 mm/hr (0-20) Sodium Level 142 mmol/L (136-145) Potassium Level 3.8 mmol/L (3.5-5.1) Chloride Level 110 mmol/L (98-107) Carbon Dioxide Level 22 mmol/L (20-31) Anion Gap 10 (5-15) Blood Urea Nitrogen 7 mg/dL (9-23) Creatinine 0.73 mg/dL (0.550-1.02) Glomerular Filtration Rate Calc 99 mL/min (>90) BUN/Creatinine Ratio 9.6 (10.0-20.0) Serum Glucose 92 mg/dL (74-106) Calcium Level 8.2 mg/dL (8.7-10.4) Magnesium Level 2.3 mg/dL (1.6-2.6) Total Bilirubin 0.4 mg/dL (0.2-1.0) Aspartate Amino Transferase (AST) 17 U/L (13-40) Alanine Aminotransferase (ALT) 28 U/L (7-40) Alkaline Phosphatase 48 U/L (46-116) C-Reactive Protein High Sensitivity 0.35 mg/dL (<1.0) Total Protein 5.7 g/dL (5.7-8.2) Albumin 3.3 g/dL (3.2-4.8) Thyroid Stimulating Hormone (TSH) 0.53 uIU/mL (0.55-4.78) Free Thyroxine (T4) Calculated 1.05 ng/dL (0.89-1.76) Total Triiodothyronine (TT3) 1.31 ng/mL (0.60-1.81) Troponin I High Sensitivity < 3 ng/L (</=34) Test 03/20/25 13:55 Urine Color Light-yellow (Yellow) Urine Clarity Clear (Clear) Urine pH 7.0 (5.0-9.0) Urine Specific [place] 1.004 (1.001-1.035) Urine Protein Negative (Negative) Urine Ketones Trace (Negative) Urine Blood Negative /uL (Negative) Urine Nitrite Negative (Negative) Urine Bilirubin Negative (Negative) Urine Urobilinogen Normal mg/dL (Negative) Urine Leukocyte Esterase Negative /uL (Negative) Urine RBC <1 /hpf (0 - 4) Urine Microscopic WBC < 1 /HPF (0-5) Urine Squamous Epithelial Cells Few /hpf (<5) Urine Bacteria Few /hpf (None Seen) Urine Glucose Normal mg/dL (Normal) Other Laboratory Tests 03/21/25 06:02 Final Diagnosis/Problems List Acute pneumonia gram +/- Possible Polycythemia vera Generalized weakness Afib no in RVR Possible acute gastroenteritis Discharge Disposition: Home Discharge Instruct/Medications Diet: Cardiac 2g Na,low cholest Activity: No Restrictions, As Tolerated Follow Up/Referral: F/U with PCP in 1 week F/U in [place] clinic in 1 week Continue f/u with cardiology as scheduled. Medications: Levofloxacin 500mg po bid x5 days Continue with home medications. Scheduled Apixaban Base (Eliquis), 5 MG PO BID Aspirin (Aspirin 81), 1 TAB PO DAILYPRN, (Reported) Carvedilol (Carvedilol), 1 TAB PO BID, (Reported) Dronedarone Hydrochloride (Multaq), 400 MG PO BID Levofloxacin Hemihydrate (Levofloxacin), 750 MG PO DAILY Metoprolol Tartrate (Lopressor), 12.5 MG PO BID Propranolol Hcl (Inderal La), 10 MG PO BID, (Reported) Scheduled PRN Sumatriptan Succinate (Sumatriptan Succinate), 1 TAB PO DAILY PRN for MIGRAINES, (Reported) Discharge Statement: "Patient was advised to return to the ER or call 911 if any headaches, dizziness, shortness of breath, chest pain, abdominal pain, bleeding, fevers, or worsening of medical condition. Patient was counseled about treatment plan, medications, possible side effects, patientverbalized understanding. All questions were answered to the best of my ability. This discharge took greater then 30 minutes in planning, reviewing documentation, counseling the patient, and discussing with other team members." Discharge Care Plan Instructions Take Rx medications, Notify MD of any issues, Keep list of meds w/ you, Do not drink ETOH/smoke, Call 911 in an emergency, F/U w/ PCP ASSESSMENT ASSESSMENT Assessment Acute pneumonia gram +/- Possible Polycythemia vera Generalized weakness Afib no in RVR Possible acute gastroenteritis Visit Coding STANDARD RES Billing Provider: YOBANY ROBERSON MD Date of Service if different f: Mar 21, 2025 Common Visit Codes: [id number]/[id number] DISCH DAY >30min YVAN PORTER RESIDENT Mar 21, 2025 18:35
--- NOTE | 2025-03-21 20:28 | DVHDSRES ---
Discharge Summary Date of Admission Resident Creating Document: YVAN PORTER RESIDENT Mar 20, 2025 at 20:38 Date of Discharge: Mar 21, 2025 Admitting Diagnosis #Acute Pneumonia, gram +/- #Generalized weakness due to the above #Chronic Paroxysmal atrial fibrillation ([id number] Score 2) #Hypertensive heart disease with possible systolic failure #Obesity BMI 30.6 #Chronic migraine #Possible acute gastroenteritis, bacterial vs viral Wounds: No wounds present on admission Labs/Diagnostic Data: Laboratory Results Test 03/21/25 12:11 03/21/25 09:00 03/21/25 06:02 03/20/25 14:00 B-Type Natriuretic Peptide 152.28 pg/mL (0-100) Influenza Type A Antigen Negative (Negative) Influenza Type B Antigen Negative (Negative) SARS-CoV-2 Antigen (Rapid) Negative (NEGATIVE) White Blood Count 5.6 10^3/uL (4.4-10.8) Red Blood Count 4.88 10^6/uL (4.0-5.20) Hemoglobin 13.7 g/dL (12.2-16.2) Hematocrit 41.8 % (36.0-46.0) Mean Corpuscular Volume 85.6 fL (80.0-100.0) Mean Corpuscular Hemoglobin 28.1 pg (28.0-32.0) Mean Corpuscular Hemoglobin Concent 32.8 g/dL (32.0-36.0) Red Cell Distribution Width 13.8 % (11.8-14.3) Platelet Count 149 10^3/uL (140-450) Mean Platelet Volume 10.6 fL (6.9-10.8) Neutrophils (%) (Auto) 63.3 % (37.0-80.0) Lymphocytes (%) (Auto) 27.4 % (10.0-50.0) Monocytes (%) (Auto) 7.3 % (0.0-12.0) Eosinophils (%) (Auto) 1.6 % (0.0-7.0) Basophils (%) (Auto) 0.4 % (0.0-2.0) Neutrophils # (Auto) 3.6 10 ^3/uL (1.6-8.6) Lymphocytes # (Auto) 1.5 10 ^3/uL (0.4-5.4) Monocytes # (Auto) 0.4 10 ^3/uL (0-1.3) Eosinophils # (Auto) 0.1 10 ^3/uL (0-0.8) Basophils # (Auto) 0 10 ^3/uL (0-0.2) Nucleated Red Blood Cells 0.2 % Erythrocyte Sedimentation Rate 3 mm/hr (0-20) Sodium Level 142 mmol/L (136-145) Potassium Level 3.8 mmol/L (3.5-5.1) Chloride Level 110 mmol/L (98-107) Carbon Dioxide Level 22 mmol/L (20-31) Anion Gap 10 (5-15) Blood Urea Nitrogen 7 mg/dL (9-23) Creatinine 0.73 mg/dL (0.550-1.02) Glomerular Filtration Rate Calc 99 mL/min (>90) BUN/Creatinine Ratio 9.6 (10.0-20.0) Serum Glucose 92 mg/dL (74-106) Calcium Level 8.2 mg/dL (8.7-10.4) Magnesium Level 2.3 mg/dL (1.6-2.6) Total Bilirubin 0.4 mg/dL (0.2-1.0) Aspartate Amino Transferase (AST) 17 U/L (13-40) Alanine Aminotransferase (ALT) 28 U/L (7-40) Alkaline Phosphatase 48 U/L (46-116) C-Reactive Protein High Sensitivity 0.35 mg/dL (<1.0) Total Protein 5.7 g/dL (5.7-8.2) Albumin 3.3 g/dL (3.2-4.8) Thyroid Stimulating Hormone (TSH) 0.53 uIU/mL (0.55-4.78) Free Thyroxine (T4) Calculated 1.05 ng/dL (0.89-1.76) Total Triiodothyronine (TT3) 1.31 ng/mL (0.60-1.81) Troponin I High Sensitivity < 3 ng/L (</=34) Test 03/20/25 13:55 Urine Color Light-yellow (Yellow) Urine Clarity Clear (Clear) Urine pH 7.0 (5.0-9.0) Urine Specific [place] 1.004 (1.001-1.035) Urine Protein Negative (Negative) Urine Ketones Trace (Negative) Urine Blood Negative /uL (Negative) Urine Nitrite Negative (Negative) Urine Bilirubin Negative (Negative) Urine Urobilinogen Normal mg/dL (Negative) Urine Leukocyte Esterase Negative /uL (Negative) Urine RBC <1 /hpf (0 - 4) Urine Microscopic WBC < 1 /HPF (0-5) Urine Squamous Epithelial Cells Few /hpf (<5) Urine Bacteria Few /hpf (None Seen) Urine Glucose Normal mg/dL (Normal) Other Laboratory Tests 03/21/25 06:02 Brief Hx & Hospital Course: Briana Sharp is a 54-year-old female with past medical history of AFib (on Eliquis) migraine, and hypertension. The patient came to [facility] ED with the chief complaint of 3 weeks of generalized weakness associated with lightheaded, dizziness. The patient report 1 episode of nausea and vomiting, shortness of breaths, getting worse that prompted this visit. Patient was seen and evaluated in the ED, laboratory data shows WBC 6.8, hemoglobin 17.0, hematocrit 51.6, platelets 188, sodium 143, potassium 4.0, BUN 9, creatinine 0.84, GFR 84, glucose 88, calcium 9.6, troponin < 3, blood pressure 105/68, heart rate 73, temperature 98.3 F, O2 saturation 98% on room air. Chest x-ray revealing right upper to mid lung zone patchy opacity, correlate for possible external artifact like hair, pneumonia can not be completely excluded. Please see medication orders section in the computer. On my assessment, patient denied chest pain, no headache, dizziness, diaphoresis, shortness of breaths, no diarrhea, nausea, vomiting, fever, no chills. Patient was admitted for further evaluation and medical management. Past Medical History AFIB, HTN Past Surgical History Denies all surgeries Family History Reviewed, noncontributory to the management of this case. Past Social History The patient lives at home, denies smoking, alcohol or illicit drugs abuse. Hospital course: On 03/21/25, the patient was evaluated and examined at bedside. The patient's VS, labs and chart was reviewed. The patient reported improvement of general weakness. The patient received receiving IV antibiotics (Ceftriaxone and azitromycin) The patient' is receiving anticoagulation. The EKG and telemetry showed sinus rhythm, no aFib episodes. The patient tolerated the diet well. Denies nausea or vomit. No new complaints were reported. Due to significant clinical improvement, the patient will be discharge home with oral antibiotics, and she will f/u with cardiology, pcp and d/c clinic in 1 week. Review of Systems Constitutional: No: Fever, Chills, Sweats, Malaise, Other Eyes: No: Pain, Vision change, Conjunctivae inflammation, Eyelid inflammation, Other, Redness ENT: No: Ear pain, Ear discharge, Nose pain, Nose discharge, Nose congestion, Mouth pain, Mouth swelling, Throat pain, Throat swelling, Other Respiratory: No: Cough, Dry, SOB with excertion, Wheezing, Hemoptysis, Pleuritic Pain, Sputum, Wheezing, Other Cardiovascular: No: Chest Pain, no SOB. Palpitations, Orthopnea, Paroxysmal Noc. Dyspnea, Edema, Lt Headedness, Other Gastrointestinal: Nausea, Vomiting; No: Abdominal Pain, Diarrhea, Constipation, Melena, Hematochezia, Other Genitourinary: No Dysuria, No Frequency, No Incontinence, No Hematuria, No Retention, No Other Musculoskeletal: No: other, neck pain, shoulder pain, arm pain, back pain, hand pain, leg pain, foot pain Skin: No: Rash, Lesions, Jaundice, Bruising, Other Neurological: Other (Dizziness); No: Weakness, Numbness, Incoordination, Change in speech, Confusion, Seizures Allergies: NO KNOWN ALLERGIES (Unverified , 01/22/13) Physcial Exam: General Appearance: Alert, Oriented X3, Cooperative, No acute distress HEENT: Atraumatic, PERRLA, EOMI, Mucous membr. moist/pink Respiratory: Normal air movement, Other (Diminished breath sounds) Cardiovascular: Regular rate, Normal S1, Normal S2, No murmurs Abdominal: Normal bowel sounds, Soft, No tenderness, No hepatospenomegaly, No masses Extremities: No clubbing, No cyanosis, No edema, Normal pulses, No tenderness/swelling Skin: No rashes, No significant lesion Neuro: Normal speech, Normal tone, Sensation intact, Cranial nerves 3-12 NL, Reflexes 2+, Other (Generalized weakness) Psych/Mental Status: Mental status NL, Mood NL Plan: D/C home. Cardiac diet Levofloxacin 500mg po bid x5 days Continue with home medications. Continue with Eliquis 5mg bid daily F/U with PCP in 1 week F/U in [place] clinic in 1 week Continue f/u with cardiology as scheduled. Condition at Discharge: Stable Final Diagnosis/Problems List #Acute Pneumonia, gram +/- #Generalized weakness due to the above #Chronic Paroxysmal atrial fibrillation ([id number] Score 2) #Hypertensive heart disease with possible systolic failure #Obesity BMI 30.6 #Chronic migraine Discharge Disposition: Home SNF Discharge Will this Physician continue t: No Discharge Instruct/Medications Diet: Cardiac 2g Na,low cholest Activity: No Restrictions, As Tolerated Follow Up/Referral: F/U with PCP in 1 week F/U in [place] clinic in 1 week Continue f/u with cardiology as scheduled. Medications: Levofloxacin 500mg po bid x5 days Continue with home medications. Scheduled Apixaban Base (Eliquis), 5 MG PO BID Aspirin (Aspirin 81), 1 TAB PO DAILYPRN, (Reported) Carvedilol (Carvedilol), 1 TAB PO BID, (Reported) Dronedarone Hydrochloride (Multaq), 400 MG PO BID Levofloxacin Hemihydrate (Levofloxacin), 750 MG PO DAILY Metoprolol Tartrate (Lopressor), 12.5 MG PO BID Propranolol Hcl (Inderal La), 10 MG PO BID, (Reported) Scheduled PRN Sumatriptan Succinate (Sumatriptan Succinate), 1 TAB PO DAILY PRN for MIGRAINES, (Reported) Discharge Statement: "Patient was advised to return to the ER or call 911 if any headaches, dizziness, shortness of breath, chest pain, abdominal pain, bleeding, fevers, or worsening of medical condition. Patient was counseled about treatment plan, medications, possible side effects, patientverbalized understanding. All questions were answered to the best of my ability. This discharge took greater then 30 minutes in planning, reviewing documentation, counseling the patient, and discussing with other team members." ASSESSMENT ASSESSMENT Assessment #Acute Pneumonia, gram +/- #Generalized weakness due to the above #Chronic Paroxysmal atrial fibrillation ([id number] Score 2) #Hypertensive heart disease with possible systolic failure #Obesity BMI 30.6 #Chronic migraine #Possible acute gastroenteritis, bacterial vs viral Diet:Cardiac Disposition: Home PCP: Dr. Treviño Patient's status and discharge plan discussed with the patient >30min. patient agress with the discharge plan Case discussed with Dr. Mccallum Visit Coding STANDARD RES Billing Provider: YOBANY ROBERSON MD Date of Service if different f: Mar 21, 2025 Common Visit Codes: 95482-AOV/OBS DISCH DAY >30min YVAN PORTER RESIDENT Mar 21, 2025 20:28
[2025-03-21] MEDS ORDERED: PROPRANOLOL HCL 20 MG TAB PO SCH (22:00)
== END 2025-03-21 16:30 | disposition home or self-care (01) | DRG 179 ==
LOC: EDUNIT# 13:26 → ER 13:26 → EDBD 13:26 → OVERFLOW 20:38 → TELE-WESTW 21:45
PROVIDERS: ADMIT Student in an Organized Health Care Education/Training Program; ATTEND Student in an Organized Health Care Education/Training Program
DX: J15.69 Pneumonia due to other Gram-negative bacteria (principal); D45 Polycythemia vera; E66.9 Obesity, unspecified; G43.909 Migraine, unspecified, not intractable, without status migrainosus; I48.0 Paroxysmal atrial fibrillation; J15.9 Unspecified bacterial pneumonia; Z79.01 Long term (current) use of anticoagulants; I10 Essential (primary) hypertension; Z68.30 Body mass index [BMI] 30.0-30.9, adult; Z20.822 Contact with and (suspected) exposure to COVID-19
CPT/HCPCS: 36415; 71045; 80048; 80053; 81001; 83735; 83880; 84439; 84443; 84480; 84484; 85025; 85652; 86141; 87426; 87804; 93005; 94640; 96361; 96365; G0378; J2470